=== PATIENT | male | born 1950 | race Caucasian/White ===

== ENCOUNTER 2018-07-28 17:54 | Inpatient (IN) ==
--- NOTE | 2018-07-28 18:20 | Emergency Department Note ---
Disposition Clinical Impression: CHF (congestive heart failure), Afib Disposition: Admitted As Inpatient Condition: Fair Referrals: Pete Govea MD [Primary Care Provider] - Forms: ED Satisfaction Letter General Adult HPI - General Chief complaint: ED Shortness of Breath/Dyspnea Stated complaint: HUONG, Possible CHF Time Seen by Provider: 07/28/18 18:14 - History of Present Illness Pain Scale: 8 - Related Data Allergies Allergy/AdvReac Type Severity Reaction Status Date / Time No Known Allergies Allergy Verified 07/28/18 18:26 Course Vital Signs Temperature 97.7 F 07/28/18 18:03 Pulse Rate 94 07/28/18 18:03 Respiratory Rate 20 07/28/18 18:03 Blood Pressure 131/82 07/28/18 18:03 O2 Sat by Pulse Oximetry 93 07/28/18 18:03 Temperature 97.7 F 07/28/18 18:26 Pulse Rate 94 07/28/18 18:26 Respiratory Rate 20 07/28/18 18:26 Blood Pressure 131/82 07/28/18 18:26 O2 Sat by Pulse Oximetry 96 07/28/18 18:26 Oxygen Delivery Oxygen Delivery Room Air Medical Decision Making - Lab Data Result diagrams: 07/28/18 18:22 07/28/18 18:22 Lab Results 07/28/18 07/28/18 07/28/18 Range/Units 18:22 18:22 18:22 WBC 7.4 (4.3-11.1) K/mcL RBC 5.88 H (4.19-5.50) M/mcL Hgb 18.4 H D (12.9-16.9) g/dL Hct 55.4 H (37.5-50.1) % MCV 94.2 (83.0-100.0) fL MCH 31.3 (28.0-33.3) pg MCHC 33.2 (31.6-35.5) g/dL RDW 12.4 (11.5-14.5) % Plt Count 199 (140-400) K/mcL MPV 10.0 (9.4-12.4) fL Immature Gran % 0.3 (0-4) % Seg Neutrophils % 54.4 % Lymphocytes % 33.2 % Monocytes % 9.8 % Eosinophils % 1.6 % Basophils % 0.7 % Neutrophils # 4.0 (1.6-8.9) K/mcL Lymphocytes # 2.5 (0.6-4.6) K/mcL Monocytes # 0.7 (0.0-1.3) K/mcL Eosinophils # 0.1 (0.0-0.6) K/mcL Basophils # 0.1 (0.0-0.2) K/mcL PT (9.4-12.1) Seconds INR Sodium 137 (136-145) mEq/L Potassium 4.2 (3.5-5.1) mEq/L Chloride 102 (98-107) mEq/L Carbon Dioxide 26 (23-29) mEq/L BUN 18 (8-23) mg/dL Creatinine 0.98 (0.70-1.30) mg/dL Est GFR ( Amer) > 60 (> 60) Est GFR (Non-Af Amer) > 60 (> 60) BUN/Creatinine Ratio 18 (6-26) Glucose 98 (70-105) mg/dL Calculated Osmolality 286 (280-300) Calcium 9.2 (8.6-10.3) mg/dL Total Bilirubin 0.7 (0.3-1.0) mg/dL Direct Bilirubin 0.1 (0.0-0.2) mg/dL Indirect Bilirubin 0.6 (0.0-1.2) mg/dL AST 23 (13-39) Units/L ALT 32 (7-52) Units/L Alkaline Phosphatase 68 (34-104) Units/L Troponin I < 0.03 (< 0.04) ng/mL B-Natriuretic Peptide 539 H (Less than 100) pg/mL Serum Total Protein 6.5 (6.4-8.9) g/dL Albumin 3.7 (3.5-5.7) g/dL Globulin 2.8 (2.4-3.5) g/dL Albumin/Globulin Ratio 1.3 (1.1-2.2) Specimen Rejected 07/28/18 07/28/18 Range/Units 18:57 19:02 WBC (4.3-11.1) K/mcL RBC (4.19-5.50) M/mcL Hgb (12.9-16.9) g/dL Hct (37.5-50.1) % MCV (83.0-100.0) fL MCH (28.0-33.3) pg MCHC (31.6-35.5) g/dL RDW (11.5-14.5) % Plt Count (140-400) K/mcL MPV (9.4-12.4) fL Immature Gran % (0-4) % Seg Neutrophils % % Lymphocytes % % Monocytes % % Eosinophils % % Basophils % % Neutrophils # (1.6-8.9) K/mcL Lymphocytes # (0.6-4.6) K/mcL Monocytes # (0.0-1.3) K/mcL Eosinophils # (0.0-0.6) K/mcL Basophils # (0.0-0.2) K/mcL PT 12.4 H (9.4-12.1) Seconds INR 1.1 Sodium (136-145) mEq/L Potassium (3.5-5.1) mEq/L Chloride (98-107) mEq/L Carbon Dioxide (23-29) mEq/L BUN (8-23) mg/dL Creatinine (0.70-1.30) mg/dL Est GFR ( Amer) (> 60) Est GFR (Non-Af Amer) (> 60) BUN/Creatinine Ratio (6-26) Glucose (70-105) mg/dL Calculated Osmolality (280-300) Calcium (8.6-10.3) mg/dL Total Bilirubin (0.3-1.0) mg/dL Direct Bilirubin (0.0-0.2) mg/dL Indirect Bilirubin (0.0-1.2) mg/dL AST (13-39) Units/L ALT (7-52) Units/L Alkaline Phosphatase (34-104) Units/L Troponin I (< 0.04) ng/mL B-Natriuretic Peptide (Less than 100) pg/mL Serum Total Protein (6.4-8.9) g/dL Albumin (3.5-5.7) g/dL Globulin (2.4-3.5) g/dL Albumin/Globulin Ratio (1.1-2.2) Specimen Rejected Miscellaneous Attestation Statement - Attestation Attestation: I examined this patient and my medical decision-making was reviewed with the Resident Physician. I agree with the documented findings, disposition and treatment plan as described except to the extent set forth below. [id number] time provided Patient arrives complaining of intermittent chest discomfort and dyspnea, especially when he lies supine at night. He is pleasant on exam and appears in no acute distress. Plan of care discussed with the resident physician Dr. Galindo
--- NOTE | 2018-07-28 18:25 | Emergency Department Note ---
Disposition Clinical Impression: CHF (congestive heart failure) Qualifiers: Heart failure type: unspecified Heart failure chronicity: unspecified Qualified Code(s): I50.9 - Heart failure, unspecified Afib Qualifiers: Atrial fibrillation type: unspecified Qualified Code(s): I48.91 - Unspecified atrial fibrillation Disposition: Admitted As Inpatient Condition: Fair Referrals: Pete Govea MD [Primary Care Provider] - Forms: ED Satisfaction Letter Time of Disposition: 19:34 General Adult HPI - General Chief complaint: ED Shortness of Breath/Dyspnea Stated complaint: HUONG, Possible CHF Time Seen by Provider: 07/28/18 18:14 Source: patient Mode of arrival: ambulatory Limitations: no limitations Nursing Notes Reviewed: Yes Vital Signs Reviewed: Yes - History of Present Illness HPI Narrative: 68-year-old male presents for evaluation of possible congestive heart failure and shortness of breath. Patient states she has been having S penetrance of breath for proximally 5 weeks. Notes to be worse when he is lying down. Patient cannot lay down flat. Typically sleeps in a chair. Denies any fevers but does note shortness of breath. No cough. No nausea vomiting or diaphor esis. Patient states he was seen in [place] and was told to come to the ER for a possible CHF. No abdominal pain. Patient denies a history of CAD or CHF. Denies history of irregular heart rate. Pain Scale: 8 - Related Data Allergies Allergy/AdvReac Type Severity Reaction Status Date / Time No Known Allergies Allergy Verified 07/28/18 18:26 All systems ED: reviewed and negative except as stated. Constitutional: Denies: fever Cardiovascular: Reports: chest pain Respiratory: Reports: cough, dyspnea Past Medical History - Past Medical History Source: patient - Social History Smoking Status: Former smoker Physical Exam - General Limitations: no limitations General appearance: alert, in no apparent distress - Head Head exam: atraumatic, normocephalic, normal inspection - Eye Eye exam: Present: normal appearance - ENT ENT exam: normal exam, normal oropharynx, mucous membranes moist - Neck Neck exam: Present: normal inspection - Chest Chest inspection: Present: normal inspection, symmetric chest wall rise - Respiratory Respiratory exam: Present: other (Diffuse diminished with faint rales). Absent: respiratory distress - Cardiovascular Cardiovascular exam: Present: normal rhythm, tachycardia. Absent: systolic murmur - Abdominal Exam Abdominal exam: Present: soft, Non-Tender - Extremities Exam Extremities exam: Present: normal inspection. Absent: pedal edema - Back Exam Back exam: Present: normal inspection - Neurological Exam Neurological exam: Present: alert, oriented X3, CN II-XII intact - Skin Skin exam: Present: warm, dry, intact, normal color Course Course Narrative: Patient presents with concerns of congestive heart failure. Patient was sent in from an outside facility. Patient did have records reviewed dated showed an echo which had an EF of 35-40%. Patient is in A. fib with no known diagnosis of A. fib. Patient will get cardiac evaluation and likely admission. - Reevaluation(s) Reevaluation #1: Patient seen and examined. Patient's resting comfortably. Updated on plan of care. Patient will be admitted for new onset A. fib and CHF. Patient does not have any pleuritic component to his chest pain. No concerns for PE. Time: 19:40 Vital Signs Temperature 97.7 F 07/28/18 18:03 Pulse Rate 94 07/28/18 18:03 Respiratory Rate 20 07/28/18 18:03 Blood Pressure 131/82 07/28/18 18:03 O2 Sat by Pulse Oximetry 93 07/28/18 18:03 Temperature 97.7 F 07/28/18 18:26 Pulse Rate 94 07/28/18 18:26 Respiratory Rate 20 07/28/18 18:26 Blood Pressure 131/82 07/28/18 18:26 O2 Sat by Pulse Oximetry 96 07/28/18 18:26 Oxygen Delivery Oxygen Delivery Room Air Medical Decision Making - [facility] Narrative Medical decision making narrative: Patient presents for concerns of dyspnea and heart failure. Did have echo earlier today which shows evidence of heart failure. Also concerns of new onset A. fib. Patient does not have risk factors or symptoms of PE. Patient does have symptoms of heart failure. Patient's workup is consistent with heart failure. Patient was given an aspirin as well as Lasix. Patient does not require any noninvasive positive pressure ventilation. No oxygen support. Patient would likely need admission for further evaluation and risk stratifica tion and optimal medical management. Patient is agreeable with this plan of care. - Medical Records Medical records reviewed: Yes I reviewed the patient's medical records. Impressions: Atrial fibrillation. LVEF grossly 35-40%. Moderate global left ventricular systolic dysfunction. Normal right ventricular structure and function. Mild mitral regurgitation. Mild pulmonic regurgitation. No pulmonary hypertension. - Lab Data Lab results reviewed: Yes I reviewed the patient's lab results. Result diagrams: 07/28/18 18:22 07/28/18 18:22 Lab Results 07/28/18 07/28/18 07/28/18 Range/Units 18:22 18:22 18:22 WBC 7.4 (4.3-11.1) K/mcL RBC 5.88 H (4.19-5.50) M/mcL Hgb 18.4 H D (12.9-16.9) g/dL Hct 55.4 H (37.5-50.1) % MCV 94.2 (83.0-100.0) fL MCH 31.3 (28.0-33.3) pg MCHC 33.2 (31.6-35.5) g/dL RDW 12.4 (11.5-14.5) % Plt Count 199 (140-400) K/mcL MPV 10.0 (9.4-12.4) fL Immature Gran % 0.3 (0-4) % Seg Neutrophils % 54.4 % Lymphocytes % 33.2 % Monocytes % 9.8 % Eosinophils % 1.6 % Basophils % 0.7 % Neutrophils # 4.0 (1.6-8.9) K/mcL Lymphocytes # 2.5 (0.6-4.6) K/mcL Monocytes # 0.7 (0.0-1.3) K/mcL Eosinophils # 0.1 (0.0-0.6) K/mcL Basophils # 0.1 (0.0-0.2) K/mcL PT (9.4-12.1) Seconds INR Sodium 137 (136-145) mEq/L Potassium 4.2 (3.5-5.1) mEq/L Chloride 102 (98-107) mEq/L Carbon Dioxide 26 (23-29) mEq/L BUN 18 (8-23) mg/dL Creatinine 0.98 (0.70-1.30) mg/dL Est GFR ( Amer) > 60 (> 60) Est GFR (Non-Af Amer) > 60 (> 60) BUN/Creatinine Ratio 18 (6-26) Glucose 98 (70-105) mg/dL Calculated Osmolality 286 (280-300) Calcium 9.2 (8.6-10.3) mg/dL Total Bilirubin 0.7 (0.3-1.0) mg/dL Direct Bilirubin 0.1 (0.0-0.2) mg/dL Indirect Bilirubin 0.6 (0.0-1.2) mg/dL AST 23 (13-39) Units/L ALT 32 (7-52) Units/L Alkaline Phosphatase 68 (34-104) Units/L Troponin I < 0.03 (< 0.04) ng/mL B-Natriuretic Peptide 539 H (Less than 100) pg/mL Serum Total Protein 6.5 (6.4-8.9) g/dL Albumin 3.7 (3.5-5.7) g/dL Globulin 2.8 (2.4-3.5) g/dL Albumin/Globulin Ratio 1.3 (1.1-2.2) Specimen Rejected 07/28/18 07/28/18 Range/Units 18:57 19:02 WBC (4.3-11.1) K/mcL RBC (4.19-5.50) M/mcL Hgb (12.9-16.9) g/dL Hct (37.5-50.1) % MCV (83.0-100.0) fL MCH (28.0-33.3) pg MCHC (31.6-35.5) g/dL RDW (11.5-14.5) % Plt Count (140-400) K/mcL MPV (9.4-12.4) fL Immature Gran % (0-4) % Seg Neutrophils % % Lymphocytes % % Monocytes % % Eosinophils % % Basophils % % Neutrophils # (1.6-8.9) K/mcL Lymphocytes # (0.6-4.6) K/mcL Monocytes # (0.0-1.3) K/mcL Eosinophils # (0.0-0.6) K/mcL Basophils # (0.0-0.2) K/mcL PT 12.4 H (9.4-12.1) Seconds INR 1.1 Sodium (136-145) mEq/L Potassium (3.5-5.1) mEq/L Chloride (98-107) mEq/L Carbon Dioxide (23-29) mEq/L BUN (8-23) mg/dL Creatinine (0.70-1.30) mg/dL Est GFR ( Amer) (> 60) Est GFR (Non-Af Amer) (> 60) BUN/Creatinine Ratio (6-26) Glucose (70-105) mg/dL Calculated Osmolality (280-300) Calcium (8.6-10.3) mg/dL Total Bilirubin (0.3-1.0) mg/dL Direct Bilirubin (0.0-0.2) mg/dL Indirect Bilirubin (0.0-1.2) mg/dL AST (13-39) Units/L ALT (7-52) Units/L Alkaline Phosphatase (34-104) Units/L Troponin I (< 0.04) ng/mL B-Natriuretic Peptide (Less than 100) pg/mL Serum Total Protein (6.4-8.9) g/dL Albumin (3.5-5.7) g/dL Globulin (2.4-3.5) g/dL Albumin/Globulin Ratio (1.1-2.2) Specimen Rejected Miscellaneous - Radiology Data Radiology results reviewed: Yes I reviewed the patient's radiology results. Chest X-Ray 07/28/18 18:18 IMPRESSION: Improved perihilar opacities suggest resolving pulmonary edema. Mild cardiomegaly. D/ / Isaías Rader MD / Isaías Rader MD Interpreting Provider: Isaías Rader MD - EKG Data EKG #1 EKG attestation: Yes I reviewed and interpreted this EKG. Rate: tachycardia Rhythm: A.Fib [place]/QRS: normal, IVCD When compared to previous EKG there are: changes noted Interpretation: nonspecific ST-T wave changes S.B.AKeikoRKeiko - S.Ramon.AKeira Situation: Demographics Background: Presenting Complaint Assessment: Vital Signs, Course and respsone to treatment, Patient/Family Expectation Recommendation: Barrier(s) to disposition, Recommendation based on pending studies, treatments, or consults S.B.A.RKeiko Report Given to: Dr. Yg Bravo Repor Time: 19:34
[2018-07-28 18:40] LABS: Basophils # 0.1 K/mcL (0.0-0.2); Basophils % 0.7 %; Eosinophils # 0.1 K/mcL (0.0-0.6); Eosinophils % 1.6 %; Immature Granulocytes % 0.3 % (0-4); Lymphocytes # 2.5 K/mcL (0.6-4.6); Lymphocytes % 33.2 %; Mean Corpuscular HGB Conc 33.2 g/dL (31.6-35.5); Mean Corpuscular Hemoglobin 31.3 pg (28.0-33.3); Mean Corpuscular Volume 94.2 fL (83.0-100.0); Monocytes # 0.7 K/mcL (0.0-1.3); Monocytes % 9.8 %; Platelet Count 199 K/mcL (140-400); Red Blood Count 5.88 M/mcL (4.19-5.50); Red Cell Distribution Width 12.4 % (11.5-14.5); Segmented Neutrophils % 54.4 %
[2018-07-28 18:50] LABS: Hematocrit 55.4 % (37.5-50.1); Hemoglobin 18.4 g/dL (12.9-16.9)
[2018-07-28 19:00] LABS: Troponin I < 0.03 ng/mL (< 0.04)
[2018-07-28 19:01] LABS: Alanine Aminotransferase 32 Units/L (7-52); Albumin 3.7 g/dL (3.5-5.7); Albumin/Globulin Ratio 1.3 (1.1-2.2); Alkaline Phosphatase 68 Units/L (34-104); Aspartate Amino Transferase 23 Units/L (13-39); BUN/Creatinine Ratio 18 (6-26); Bilirubin,Direct 0.1 mg/dL (0.0-0.2); Bilirubin,Indirect 0.6 mg/dL (0.0-1.2); Bilirubin,Total 0.7 mg/dL (0.3-1.0); Blood Urea Nitrogen 18 mg/dL (8-23); Calcium 9.2 mg/dL (8.6-10.3); Carbon Dioxide 26 mEq/L (23-29); Chloride 102 mEq/L (98-107); Globulin 2.8 g/dL (2.4-3.5); Glucose 98 mg/dL (70-105); Osmolality,Calculated 286 (280-300); Potassium 4.2 mEq/L (3.5-5.1); Sodium 137 mEq/L (136-145); Total Protein 6.5 g/dL (6.4-8.9); eGFR For Non-African Americans > 60 (> 60)
[2018-07-28 19:18] LABS: INR 1.1; Prothrombin Time 12.4 Seconds (9.4-12.1)
[2018-07-28] MEDS ORDERED: Furosemide 40 MG/4 ML VIAL IVP ONE (19:18)
[2018-07-28] MEDS ORDERED: Furosemide 20 MG/2 ML VIAL IVP ONE (19:39)
[2018-07-28] MEDS: Aspirin 325 MG TABLET PO ONE ×2 (20:34→20:42)
[2018-07-29] MEDS ORDERED: Naloxone 0.4 MG/ML INJ IVP PRN (01:22)
[2018-07-29] MEDS ORDERED: *HR* Heparin 5,000 UNIT/ML VIAL IVP PRN ×2 (01:24)
[2018-07-29] MEDS ORDERED: *HR* Heparin 5,000 UNIT/ML VIAL IVP ONE (01:24)
[2018-07-29] MEDS: Heparin 25,000 UNIT/500 ML D5W 25,000 UNIT/500 ML BAG IVC SCH ×2 (01:53→20:13)
[2018-07-29 02:34] LABS: Hematocrit 52.8 % (37.5-50.1); Hemoglobin 17.9 g/dL (12.9-16.9); Mean Corpuscular HGB Conc 33.9 g/dL (31.6-35.5); Mean Corpuscular Hemoglobin 31.5 pg (28.0-33.3); Mean Corpuscular Volume 92.8 fL (83.0-100.0); Mean Platelet Volume 9.7 fL (9.4-12.4); Platelet Count 193 K/mcL (140-400); Red Blood Count 5.69 M/mcL (4.19-5.50); Red Cell Distribution Width 12.5 % (11.5-14.5)
[2018-07-29 02:51] LABS: BUN/Creatinine Ratio 15 (6-26); Blood Urea Nitrogen 15 mg/dL (8-23); Calcium 9.5 mg/dL (8.6-10.3); Carbon Dioxide 25 mEq/L (23-29); Chloride 103 mEq/L (98-107); Glucose 108 mg/dL (70-105); Osmolality,Calculated 285 (280-300); Potassium 3.8 mEq/L (3.5-5.1); Sodium 137 mEq/L (136-145); eGFR For Non-African Americans > 60 (> 60)
[2018-07-29 03:09] LABS: INR 1.1
[2018-07-29 03:15] LABS: Heparin anti-factor XA UFH 1.31 IU/mL (0.30-0.70)
[2018-07-29] MEDS: Furosemide 20 MG/2 ML VIAL IVP SCH (08:00)
--- NOTE | 2018-07-29 08:36 | Internal Med History&Physical ---
Date of Encounter: 07/29/18 Time of Encounter: 00:33 Internal Medicine - H&P: HPI Chief complaint: Shortness of breath Admitted From: Emergency Dept Plans for Post Hospital Care: Home History of present illness: Mr. Pardo is a 68 year old male Patient presented to the ER with 5 week history of shortness of breath and chest pain. He states that he has noticed that he has been getting more short of breath lately, particularly with laying down. He went to his doctor's office a few days ago, and he was diagnosed with bronchitis and given azithromycin, ventolin, prednisone and levaquin to take. He went to another provider 1 day ago and was given furosemide as well as a chest x-ray which showed probable mild congestive heart failure. None of these interventions seemed to help, and after getting an echo done in [place], he was told that he should go to the ER for further evaluation. He denies history of atrial fibrillation, and has never been told that he has CHF. In the ER his CBC and BMP were within normal limits. BNP was elevated at 539, chest x-ray showed improved perihilar opacities that suggested resolving pulmonary edema. Her echo done at [place] showed EF of 35-40%. He was given a dose of lasix and sent to the medical floor for further management. Upon my assessment patient states that he feels much better after being put on nasal cannula supplemental oxygen. He denies ever being told that he has atrial fibrillation and congestive heart failure. He has never seen a director of application development, and has no history of blood clots or diabetes. He has had some dizziness, but otherwise denies nausea, vomiting, diarrhea, constipation, abdominal pain and chest pain currently. His chest pain that he has felt off and on over the last 5 weeks is lower left and right chest pain with out radiation. Past Med Surg Social Fam HX - Past Medical History Medical history: other Additional medical history: tremors Psychiatric history: no psych history - Past Surgical History Surgical History: cholecystectomy, tonsilectomy - Social History Smoking Status: Former smoker Smokeless Tobacco Status: No (smoke 11 yrs ago) Alcohol use: none Drug use: none Internal Medicine - H&P: Meds Albuterol Sulfate [Ventolin Hfa] 2 puff PO Q4H PRN 07/28/18 [History] Primidone [Mysoline] 50 mg PO DAILY 07/28/18 [History] Tramadol HCl [Ultram] 50 mg PO TID PRN 07/28/18 [History] levoFLOXacin [Levofloxacin] 500 mg PO DAILY 07/28/18 [History] predniSONE [PredniSONE] 40 mg PO DAILY 07/28/18 [History] Allergy/AdvReac Type Severity Reaction Status Date / Time acetaminophen [From Tylenol] AdvReac Severe See Verified 07/28/18 22:55 Comments aspirin AdvReac See Verified 07/28/18 22:55 Comments Penicillins AdvReac Dizziness Verified 07/28/18 22:55 Sulfa (Sulfonamide AdvReac Dizziness Verified 07/28/18 20:39 Antibiotics) All Systems PM: A 10-system review of systems was performed and is negative for pertinent findings except as documented above in the HPI. - Constitutional Vitals: Temp Pulse Resp BP Pulse Ox 97.5 F L 95 18 138/62 93 07/29/18 07:01 07/29/18 07:01 07/29/18 07:01 07/29/18 07:01 07/29/18 07:01 General appearance: Present: cooperative, A&O X 3, pleasant, no acute distress, answers questions appropriately Exam: As above - Head Head exam: Present: normal inspection - Eye Eye exam: Present: EOMI, normal appearance - Respiratory Respiratory exam: Present: rales, respiratory distress, rhonchi. Absent: CTAB, wheezes - Cardiovascular Cardiovascular exam: Present: irregular rhythm. Absent: diastolic murmur, systolic murmur - GI/Abdominal GI/Abdominal exam: Present: normal bowel sounds, soft. Absent: tenderness - Extremities Exam Extremities exam: Present: warm, radial pulses palpable and symmetrical. Absent: calf tenderness, pedal edema, tenderness - Neurological Exam Neurological exam: Present: no focal deficits, strengths equal and symetr throughout. Absent: motor sensory deficit, facial droop, speech deficit - Skin Skin exam: Present: dry, normal color, warm Internal Med - H&P Results - Labs CBC & Chem 7: 07/29/18 02:06 07/29/18 02:06 Labs: Short CBC 07/28/18 07/29/18 Range/Units 18:22 02:06 WBC 7.4 8.1 (4.3-11.1) K/mcL Hgb 18.4 H D 17.9 H (12.9-16.9) g/dL Hct 55.4 H 52.8 H (37.5-50.1) % Plt Count 199 193 (140-400) K/mcL Neutrophils # 4.0 (1.6-8.9) K/mcL BMP 07/28/18 07/29/18 18:22 02:06 Sodium 137 137 Potassium 4.2 3.8 Chloride 102 103 Carbon Dioxide 26 25 BUN 18 15 Creatinine 0.98 0.99 Glucose 98 108 H Calcium 9.2 9.5 Cardiac Enzymes 07/28/18 07/29/18 Range/Units 18:22 02:06 Troponin I < 0.03 0.03 (< 0.04) ng/mL Liver Function 07/28/18 Range/Units 18:22 Total Bilirubin 0.7 (0.3-1.0) mg/dL Direct Bilirubin 0.1 (0.0-0.2) mg/dL AST 23 (13-39) Units/L ALT 32 (7-52) Units/L Alkaline Phosphatase 68 (34-104) Units/L Albumin 3.7 (3.5-5.7) g/dL - Impressions ITS Impressions Chest X-Ray 07/28/18 18:18 IMPRESSION: Improved perihilar opacities suggest resolving pulmonary edema. Mild cardiomegaly. D/ / Isaías Rader MD / Isaías Rader MD Interpreting Provider: Isaías Rader MD - Assessment and plan (1) Afib Current Visit: Yes Status: Acute Assessment and plan: Irregular rate on EKG and on exam, rate has maintained less than 100. Patient started on heparin drip. Cardiology consultation for new onset atrial fibrillation. Continue to monitor. Trend troponins. Qualifiers: Atrial fibrillation type: unspecified Qualified Code(s): I48.91 - Unspecified atrial fibrillation (2) CHF (congestive heart failure) Current Visit: Yes Status: Acute Assessment and plan: New onset CHF, lasix given in ER, as well as day prior form his PCP. patient states that he is having increased urine output. Daily weights. Continue lasix Continue to monitor. Qualifiers: Heart failure type: unspecified Heart failure chronicity: unspecified Qualified Code(s): I50.9 - Heart failure, unspecified (3) Shortness of breath Current Visit: Yes Status: Acute Assessment and plan: Secondary to CHF and afib. Improved with oxygen supplementation. Continue to monitor. Continue oxygen supplementation. (4) Essential tremor Current Visit: Yes Status: Acute Assessment and plan: Patient takes primidone, 50mg daily. Continue home med. (5) DVT prophylaxis Current Visit: Yes Status: Acute Assessment and plan: heparin drip - Time Spent With Patient Total time spent is greater than 50% in coordination of care (as documented) at patient's floor/unit and/or counseling patient: Greater than 35 minutes
[2018-07-29 08:46] LABS: Troponin I < 0.03 ng/mL (< 0.04)
[2018-07-29] MEDS: Primidone 50 MG TABLET PO SCH (10:18)
--- NOTE | 2018-07-29 11:36 | Electrophysiology Consult Note ---
Date of Encounter: 07/29/18 Time of Encounter: 11:32 Assessment and Plan (1) CHF (congestive heart failure) Current Visit: Yes Status: Acute New diagnosis of systolis dysfunction. Would diurese, start cardiomyopathy meds and will need left heart cath. Qualifiers: Heart failure type: unspecified Heart failure chronicity: unspecified Qualified Code(s): I50.9 - Heart failure, unspecified (2) Afib Current Visit: Yes Status: Acute Uncertain duration but suspect this is not acute onset but new diagnosis. Would rate control and anticoagulate initially. Qualifiers: Atrial fibrillation type: unspecified Qualified Code(s): I48.91 - Unspecif ied atrial fibrillation Discussion w patient/family: The assessment and plan as outlined above was discussed with the patient and/or family members who expressed understanding and agreement. All questions were answered. Thank you for involving us in the care of your patient. Please call with any questions. History of Present Illness Consult date: 07/29/18 Requesting physician: Dariusz Ronquillo Consult reason: CHF, new CM, AF Chief complaint: SOB, chest pain History of present illness: Mr. Pardo is a 68 year old male with a several week history of SOB and chest pain. Was treated initially for bronchitis but when symptoms did not improve he under went echo which showed a new cardiomyopathy. He was also noted to be in AF of unknown duration. Chest pain described as substernal and worse with exertion, no radiation. Past Med Surg Social Fam HX - Past Medical History Medical history: other Additional medical history: tremors Psychiatric history: no psych history - Past Surgical History Surgical History: cholecystectomy, tonsilectomy - Social History Smoking Status: Former smoker Smokeless Tobacco Status: No (smoke 11 yrs ago) Alcohol use: none Drug use: none Medications and Allergies Albuterol Sulfate [Ventolin Hfa] 2 puff PO Q4H PRN 07/28/18 [History] Primidone [Mysoline] 50 mg PO DAILY 07/28/18 [History] Tramadol HCl [Ultram] 50 mg PO TID PRN 07/28/18 [History] levoFLOXacin [Levofloxacin] 500 mg PO DAILY 07/28/18 [History] predniSONE [PredniSONE] 40 mg PO DAILY 07/28/18 [History] Allergy/AdvReac Type Severity Reaction Status Date / Time acetaminophen [From Tylenol] AdvReac Severe See Verified 07/28/18 22:55 Comments aspirin AdvReac See Verified 07/28/18 22:55 Comments Penicillins AdvReac Dizziness Verified 07/28/18 22:55 Sulfa (Sulfonamide AdvReac Dizziness Verified 07/28/18 20:39 Antibiotics) All Systems Review: The remainder of the systems were reviewed and are negative Physical Examination General: Conversant, No Apparent Distress HEENT: Atraumatic, Normocephaly, Mucus Membranes Moist Neck: No JVD, Normal carotid pulses Cardiac: Other (Irreg., distant heart sounds) Lungs: Other (decreased at bases) Neuro: Alert and responsive, No focal deficits noted Abdomen: Soft, Non-Tender Skin: No rashes noted on visualized skin Musculoskeletal: No Chest Wall Tenderness Extremities: Other (1-2 edema at ankles) Results 07/29/18 02:06 07/29/18 02:06 Lab Results 07/28/18 07/28/18 07/28/18 18:22 18:22 18:22 WBC 7.4 Hgb 18.4 H D Hct 55.4 H Plt Count 199 INR Sodium 137 Potassium 4.2 Chloride 102 Carbon Dioxide 26 BUN 18 Creatinine 0.98 Glucose 98 Calcium 9.2 Magnesium Total Bilirubin 0.7 AST 23 ALT 32 Alkaline Phosphatase 68 Troponin I < 0.03 B-Natriuretic Peptide 539 H 07/28/18 07/29/18 07/29/18 19:02 02:06 02:06 WBC Hgb Hct Plt Count INR 1.1 1.1 Sodium Potassium Chloride Carbon Dioxide BUN Creatinine Glucose Calcium Magnesium Total Bilirubin AST ALT Alkaline Phosphatase Troponin I 0.03 B-Natriuretic Peptide 07/29/18 07/29/18 07/29/18 02:06 02:06 07:52 WBC 8.1 Hgb 17.9 H Hct 52.8 H Plt Count 193 INR Sodium 137 Potassium 3.8 Chloride 103 Carbon Dioxide 25 BUN 15 Creatinine 0.99 Glucose 108 H Calcium 9.5 Magnesium 2.0 Total Bilirubin AST ALT Alkaline Phosphatase Troponin I < 0.03 B-Natriuretic Peptide - EKG Interpretation EKG results cardiology: other (AF with mild RVR) Consult Discharge Plan - Plan Referrals: Pete Govea MD [Primary Care Provider] -
--- NOTE | 2018-07-29 14:41 | Event Note ---
Date of Encounter: 07/29/18 Time of Encounter: 09:30 Mr Pardo has a pmhx of tremors, former smoker and family hx of cad and chf in his mother. He presented with new onset CHF and Afib of duration unknown but new dx He has had sob x5 weeks, was treated outpt for bronchitis with sob, cough, chest pain/pressure at that time. Post treatment cough improved but sob and chest pain/pressure did not improve. Worsening sob and developed orthopnea, pnd, le edema and cont chest discomfort in recent week. No immobilization, calf pain or unequal calf sizes Awake, alert, family at bedside. On heparingtt for AC. On o2 NC and no sob at this time. chest pain/pressure improved with o2 as well. Having at home and here intermittent palpitations, presyncope. None currently. General: awake, alert, appears stated age, obese HEENT:EOM, pupils equal, round, moist mucus membranes, clear oropharynx , no conjunctival pallor Neck: supple, trachea midline Cardiovascular:regular rate and irreg/irreg rhythm, normal S1 & S2, no rubs, murmurs or gallops. No JVD appreciable but + HJR radial pulses 2+, trace bl le lower extremity edema Lungs:Normal breath sounds, no wheezes, diminished bl bases, Normal respiratory effort on o2 nc Abdomen:Soft, non-tender, non-distended, + bowel sounds Neurological: AAOx3 Afib, rate controlled, unknown duration- on hep gtt, cards following, cont AC, toprol xl daily started Acute Systolic CHF echo 07/28: LVEF grossly 35-40%. Moderate global left ventricular systolic dysfunction. Normal right ventricular structure and function. Mild mitral regurgitation. Mild pulmonic regurgitation. No pulmonary hypertension. -IV diuresis, strict i/os, weights, monitor lytes, cards following,startstatin/bb/ acei as Bp permits / is allergic to aspirin Need to rule out ischemic cause of these newly diagnosed cardiac diseases- check tsh, a1c, lipid panel, as per cards will need [facility] -trops negative, ekg afib non specific stt changes
[2018-07-30 05:30] LABS: BUN/Creatinine Ratio 16 (6-26); Blood Urea Nitrogen 15 mg/dL (8-23); Calcium 9.2 mg/dL (8.6-10.3); Carbon Dioxide 28 mEq/L (23-29); Chloride 104 mEq/L (98-107); Chol/HDL Ratio 4.3 (0-4.9); Cholesterol 197 mg/dL (< 200); Glucose 116 mg/dL (70-105); HDL Cholesterol 46 mg/dL (40-59); LDL Cholesterol,Calculated 111 mg/dL (0-99); Magnesium 1.9 mg/dL (1.6-2.6); Osmolality,Calculated 290 (280-300); Potassium 3.7 mEq/L (3.5-5.1); Sodium 139 mEq/L (136-145); Triglycerides 199 mg/dL (< 150); eGFR For Non-African Americans > 60 (> 60)
[2018-07-30] MEDS: Metoprolol XL (24 HR) Succ 25 MG TAB.ER.24H PO SCH (08:04)
[2018-07-30] MEDS: Furosemide 20 MG/2 ML VIAL IVP SCH (08:04)
[2018-07-30] MEDS: Primidone 50 MG TABLET PO SCH (08:04)
[2018-07-30] MEDS: Furosemide 40 MG/4 ML VIAL IVP SCH ×2 (09:54→16:10)
--- NOTE | 2018-07-30 11:02 | Internal Med Progress Note ---
<Karen Enamorado - Last Filed: 07/30/18 15:09> Hospitalist Progress Note - Encounter Date of Encounter: 07/30/18 Time of Encounter: 10:50 - Subjective Interval History: Patient seen and examined. No acute events overnight. Patient is sitting comfortably on bed with family at bedside. Patient states he feels fine. States hes a little lightheadedness after the Lasix. States he still feels chest heaviness but reports its improved since admission. States shortness of breath is improved. States swelling is gone. Denies any other complaints. Denies abdominal pain. Denies nausea/vomiting. - Exam Vitals: Temp Pulse Resp BP Pulse Ox 97.9 F 87 19 132/98 94 07/30/18 04:46 07/30/18 07:10 07/30/18 07:10 07/30/18 07:10 07/30/18 07:10 Exam: General: Morbidly obese. Alert and oriented x3. No acute distress. Head: atraumatic, normocephalic. Eye: pupils equal and round. Sclera anicteric. EOMI. Neck: supple. Trachea midline. Lungs: CTAB. Diminished breath sounds. No rhonchi, rales, or wheezing. Cardiovascular: Normal S1 & S2. No rubs or gallops. No JVD. Pulse regular. Abdomen: Normal bowel sounds. Nontender to palpation. No guarding, no rigidity, no rebound. Extremities: No joint swelling, edema, or clubbing. Nontender. Skin: warm, dry, and intact. - Assessment and Plan (1) Afib Current Visit: Yes Status: Acute Assessment and Plan: On admission, A-fib on EKG, rate <100. New diagnosis, unknown duration. Rule out ischemic cause. Serial troponins are negative. EKG is negative for acute ischemic changes. Echo showed LVEF 35-40%. No clot. Patient was started on heparin drip. Was started on Toprol. No ASA due to allergy. Continue to monitor. Cardiology consulted and following. Likely [facility] tomorrow. (2) CHF (congestive heart failure) Current Visit: Yes Status: Acute Assessment and Plan: Patient presented with worsening SOB, orthopnea, and leg swelling. Acute systolic CHF. New onset. Echo showed LVEF 35-40%, mod LV systolic dysfunction. No pHTN. Lasix was given in ER, as well as day before by PCP. Patient states that he is having increased urine output. Lasix increased today to 40 BID due to low net output. Assess net output tomorrow and adjust dose if needed. Lisinopril started today. Daily weights. Strict I&Os. Continue to monitor. Cardiology consulted and following. (3) Shortness of breath Current Visit: Yes Status: Acute Assessment and Plan: Secondary to CHF and Afib. Improved. Continue to monitor. Continue oxygen supplementation. (4) Essential tremor Current Visit: Yes Status: Chronic Assessment and Plan: Patient takes primidone, 50mg daily. Continue home med. DVT Prophylaxis: heparin drip - Time Spent with Patient Total time spent is greater than 50% in coordination of care (as documented) at patient's floor/unit and/or counseling patient: Internal Medicine: Result - Labs CBC & Chem 7: 07/29/18 02:06 07/30/18 04:52 Labs: BMP 07/30/18 04:52 Sodium 139 Potassium 3.7 Chloride 104 Carbon Dioxide 28 BUN 15 Creatinine 0.95 Glucose 116 H Calcium 9.2 - ABG Interpretation ABG results: PT/INR, D-dimer PT 12.0 Seconds (9.4-12.1) 07/29/18 02:06 Consult Discharge Plan - Plan Referrals: Pete Govea MD [Primary Care Provider] - <Karin Zelaya - Last Filed: 07/30/18 15:33> Hospitalist Progress Note - Exam Vitals: Temp Pulse Resp BP Pulse Ox 97.9 F 87 19 132/98 94 07/30/18 04:46 07/30/18 07:10 07/30/18 07:10 07/30/18 07:10 07/30/18 07:10 - Assessment and Plan (1) CHF (congestive heart failure) Current Visit: Yes Status: Acute (2) Afib Current Visit: Yes Status: Acute (3) Shortness of breath Current Visit: Yes Status: Acute (4) Essential tremor Current Visit: Yes Status: Chronic - Time Spent with Patient Total time spent is greater than 50% in coordination of care (as documented) at patient's floor/unit and/or counseling patient: Internal Medicine: Result - Labs CBC & Chem 7: 07/29/18 02:06 07/30/18 04:52 Labs: BMP 07/30/18 04:52 Sodium 139 Potassium 3.7 Chloride 104 Carbon Dioxide 28 BUN 15 Creatinine 0.95 Glucose 116 H Calcium 9.2 - ABG Interpretation ABG results: PT/INR, D-dimer PT 12.0 Seconds (9.4-12.1) 07/29/18 02:06 - Attending Attestation I examined this patient and my medical decision-making was reviewed with the Resident Physician Dr Enamorado. I agree with the documented findings, disposition and treatment plan as described except to the extent set forth below/addl det ails below Mr Pardo has a pmhx of tremors, former smoker and family hx of cad and chf in his mother. He presented with new onset CHF and Afib of duration unknown but new dx He has had sob x5 weeks, was treated outpt for bronchitis with sob, cough, chest pain/pressure at that time. Post treatment cough improved but sob and chest pain/pressure did not improve. Worsening sob and developed orthopnea, pnd, le edema and cont chest discomfort in recent week. He is being followed by card iology and will require ischemic work up. awake, family at bedside, had intermittent chest pain last evening,none thus far today. no palpitations, presycnope. no sob on o2 nc, + orthopnea. General: awake, alert, appears stated age, obese Cardiovascular:regular rate and irreg/irreg rhythm, normal S1 & S2, no rubs, murmurs or gallops. No JVD appreciable but + HJR radial pulses 2+, no lower extremity edema Lungs:Normal breath sounds, no wheezes, diminished bl bases, Normal respiratory effort on o2 nc Abdomen:Soft, non-tender, non-distended, + bowel sounds Neurological: AAOx3 Afib, rate controlled, unknown duration- on hep gtt, cards following, cont AC, toprol xl daily started Acute Systolic CHF echo 07/28: LVEF grossly 35-40%. Moderate global left ventricular systolic dysfunction. Normal right ventricular structure and function. Mild mitral regurgitation. Mild pulmonic regurgitation. No pulmonary hypertension. -IV diuresis increased 07/30 as net + this admit on 20 mg IV BID, strict i/os, weights, monitor lytes, cards following, statin/bb/acei/ is allergic to aspirin Need to rule out ischemic cause of these newly diagnosed cardiac diseases- a1c pending, lipid panel with hyperlipidemia, as per cards will need [facility] -trops negative, ekg afib non specific stt changes <Karen Enamorado - Last Filed: 07/30/18 15:09> (1) Afib Qualifiers: Atrial fibrillation type: unspecified Qualified Code(s): I48.91 - Unspecified atrial fibrillation (2) CHF (congestive heart failure) Qualifiers: Heart failure type: unspecified Heart failure chronicity: unspecified Qualified Code(s): I50.9 - Heart failure, unspecified <Karin Zelaya - Last Filed: 07/30/18 15:33> (1) CHF (congestive heart failure) Qualifiers: Heart failure type: unspecified Heart failure chronicity: unspecified Qualified Code(s): I50.9 - Heart failure, unspecified (2) Afib Qualifiers: Atrial fibrillation type: unspecified Qualified Code(s): I48.91 - Unspecified atrial fibrillation
[2018-07-30] MEDS: Heparin 25,000 UNIT/500 ML D5W 25,000 UNIT/500 ML BAG IVC SCH (11:36)
[2018-07-30] MEDS ORDERED: Magnesium Oxide 400 MG TABLET PO ONE (13:17)
[2018-07-31] MEDS: Heparin 25,000 UNIT/500 ML D5W 25,000 UNIT/500 ML BAG IVC SCH ×2 (04:58→21:18)
[2018-07-31 05:33] LABS: BUN/Creatinine Ratio 21 (6-26); Blood Urea Nitrogen 22 mg/dL (8-23); Calcium 9.5 mg/dL (8.6-10.3); Carbon Dioxide 28 mEq/L (23-29); Chloride 102 mEq/L (98-107); Glucose 105 mg/dL (70-105); Osmolality,Calculated 290 (280-300); Potassium 3.9 mEq/L (3.5-5.1); Sodium 138 mEq/L (136-145); eGFR For Non-African Americans > 60 (> 60)
--- NOTE | 2018-07-31 07:41 | Pulmonology Progress Note ---
Date of Encounter: 07/31/18 Time of Encounter: 07:40 Objective PUL Vital signs: Last Vital Signs Temp 97.7 F 07/31/18 05:13 Pulse 86 07/31/18 05:13 Resp 18 07/31/18 05:13 BP 120/90 07/31/18 05:13 Pulse Ox 94 07/31/18 01:00 Results - Laboratory Findings CBC and BMP: 07/29/18 02:06 07/31/18 04:34 PT/INR, D-dimer PT 12.0 Seconds (9.4-12.1) 07/29/18 02:06 Abnormal lab findings: Abnormal lab results RBC 5.69 M/mcL (4.19-5.50) H 07/29/18 02:06 Hgb 17.9 g/dL (12.9-16.9) H 07/29/18 02:06 Hct 52.8 % (37.5-50.1) H 07/29/18 02:06 B-Natriuretic Peptide 539 pg/mL (Less than 100) H 07/28/18 18:22 Triglycerides 199 mg/dL (< 150) H 07/30/18 04:52 LDL Cholesterol, Calc 111 mg/dL (0-99) H 07/30/18 04:52 VLDL Cholesterol, Calc 40 mg/dL (< 31) H 07/30/18 04:52 - Clinical Findings Intake & Output: Intake & Output 07/30/18 07/30/18 07/31/18 15:59 23:59 07:59 Intake Total 1276 / 1276 740 / 740 720 / 720 Output Total 1150 / 1150 300 / 300 425 / 425 Balance 126 / 126 440 / 440 295 / 295 Weight 139 kg Consult Discharge Plan - Plan Referrals: Pete oGvea MD [Primary Care Provider] -
--- NOTE | 2018-07-31 07:45 | Internal Med Progress Note ---
<Lynette Muir - Last Filed: 07/31/18 12:33> Hospitalist Progress Note - Encounter Date of Encounter: 07/31/18 Time of Encounter: 07:45 - Subjective Interval History: No acute events overnight. Pt scheduled for a [facility] today at 1400. Pt states he is feeling well, still feeling a little lightheaded occasionally, but not cons istently. States that when he feels light headed, sometimes his hands go numb - first one of them and then the other. Also complaining of a dry cough. States that he quit smoking 2 weeks ago after 63 years 1ppd. Saturating at 95% on RA, but would like to discuss home oxygen for when he feels short of breath. Will make sure he is on cardiac diet and will fluid restrict to 1.5L per day. - Exam Vitals: Temp Pulse Resp BP Pulse Ox 97.7 F 86 18 120/90 94 07/31/18 05:13 07/31/18 05:13 07/31/18 05:13 07/31/18 05:13 07/31/18 01:00 Exam: General: Morbidly obese. A&O x 3. No acute distress. Well developed, well nourished. Head: atraumatic, normocephalic. ENT: No conjunctival injection, no scleral icterus. PERRLA. EOMI. Oropharynx non- erythematous. mucous membranes moist. Pulm: Lungs CTAB A/P. No wheezes, rales, ronchi. Cardio: Heart rate irregular. Abd: Soft, non-distended. Normoactive bowel sounds. Non-tender to palpation. No guarding. Non rigid. Extremities: Radial pulses 2+ bong, Mild 1+ bong edema LE Skin: warm, dry, intact. No rashes. Psych: Appropriate mood and affect. Answers questions appropriately. Cooperative with exam. - Assessment and Plan (1) CHF (congestive heart failure) Current Visit: Yes Status: Acute Assessment and Plan: Patient presented with worsening SOB, orthopnea, and leg swelling. Acute systolic CHF. New onset. Echo showed LVEF 35-40%, mod LV systolic dysfunction. No pHTN. Lasix was given in ER, as well as day before by PCP. Patient states that he is having increased urine output. Lasix increased yesterday to 40 BID due to low net output. Assess net output tomorrow and adjust dose if needed. Lisinopril started yesterday. Daily weights. Strict I&Os. Continue to monitor. Cardiology consulted and following. (2) Afib Current Visit: Yes Status: Acute Assessment and Plan: On admission, A-fib on EKG, rate <100. New diagnosis, unknown duration. Rule out ischemic cause. Serial troponins are negative. EKG is negative for acute ischemic changes. Echo showed LVEF 35-40%. No clot. Patient was started on heparin drip. Was started on Toprol. No ASA due to allergy. Continue to monitor. Cardiology consulted and following. [facility] today (3) Shortness of breath Current Visit: Yes Status: Acute Assessment and Plan: Likely secondary to Afib and CHF Improved Continue to monitor assess for home oxygen need at discharge (4) Essential tremor Current Visit: Yes Status: Chronic Assessment and Plan: Pt has been taking primadone 50mg at home, continue home medication (5) DVT prophylaxis Current Visit: Yes Status: Acute Assessment and Plan: heparin drip DVT Prophylaxis: heparin drip - Time Spent with Patient Total time spent is greater than 50% in coordination of care (as documented) at patient's floor/unit and/or counseling patient: Internal Medicine: Result - Labs CBC & Chem 7: 07/29/18 02:06 07/31/18 04:34 Labs: BMP 07/31/18 04:34 Sodium 138 Potassium 3.9 Chloride 102 Carbon Dioxide 28 BUN 22 Creatinine 1.03 Glucose 105 Calcium 9.5 - ABG Interpretation ABG results: PT/INR, D-dimer PT 12.0 Seconds (9.4-12.1) 07/29/18 02:06 Consult Discharge Plan - Plan Referrals: Pete Govea MD [Primary Care Provider] - 08/07/18 3:30 pm <Karin Zelaya - Last Filed: 07/31/18 13:40> Hospitalist Progress Note - Exam Vitals: Temp Pulse Resp BP Pulse Ox 98.2 F 90 16 130/90 97 07/31/18 09:00 07/31/18 09:00 07/31/18 09:00 07/31/18 09:00 07/31/18 09:00 - Assessment and Plan (1) CHF (congestive heart failure) Current Visit: Yes Status: Acute (2) Afib Current Visit: Yes Status: Acute (3) Shortness of breath Current Visit: Yes Status: Acute (4) Essential tremor Current Visit: Yes Status: Chronic - Time Spent with Patient Total time spent is greater than 50% in coordination of care (as documented) at patient's floor/unit and/or counseling patient: Internal Medicine: Result - Labs CBC & Chem 7: 07/29/18 02:06 07/31/18 04:34 Labs: BMP 07/31/18 04:34 Sodium 138 Potassium 3.9 Chloride 102 Carbon Dioxide 28 BUN 22 Creatinine 1.03 Glucose 105 Calcium 9.5 - ABG Interpretation ABG results: PT/INR, D-dimer PT 12.0 Seconds (9.4-12.1) 07/29/18 02:06 - Attending Attestation I examined this patient and my medical decision-making was reviewed with the Resident Physician Dr Muir. I agree with the documented findings, disposition and treatment plan as described except to the extent set forth below/addl details below He presented with new onset CHF and Afib of duration unknown but new dx He has had sob x5 weeks, was treated outpt for bronchitis with sob, cough, chest pain/pressure at that time. Post treatment cough improved but sob and chest pain/pressure did not improve. Worsening sob and developed orthopnea, pnd, le edema and cont chest discomfort in recent week. He is being followed by cardiology and will require ischemic work up. awake, family at bedside, denies any chest painovernight, no palpitations, presycnope. no sob at rest on ra, but sob with exertion and cont to have orthopnea. He remains net + this admit despite lasix dosing increase yesterday, pt noting large output of urine General: awake, alert, appears stated age, obese Cardiovascular:regular rate and irreg/irreg rhythm, normal S1 & S2, no rubs, murmurs or gallops. trace pitting lower extremity edema Lungs:Normal breath sounds, no wheezes, diminished bl bases, Normal respiratory effort on o2 nc Abdomen:Soft, non-tender, non-distended, + bowel sounds Neurological: AAOx3 Afib, rate controlled, unknown duration- on hep gtt, cards following, cont AC, toprol xl daily started, cards is weathers checking noac for him Acute Systolic CHF echo 07/28: LVEF grossly 35-40%. -IV diuresis increased 07/30 as net + this admit, cont to monitor strict i/os, clinically beginning to improve -cards following, statin/bb/acei/ is allergic to aspirin Need to rule out ischemic cause of these newly diagnosed cardiac diseases- [facility] today Prediates with AC 5.7%- diet and lifestyle modifications, fu with pcp HLD on lipid panel - statin <Lynette Muir - Last Filed: 07/31/18 12:33> (1) CHF (congestive heart failure) Qualifiers: Heart failure type: unspecified Heart failure chronicity: unspecified Quali fied Code(s): I50.9 - Heart failure, unspecified (2) Afib Qualifiers: Atrial fibrillation type: unspecified Qualified Code(s): I48.91 - Unspecified atrial fibrillation <Karin Zelaya - Last Filed: 07/31/18 13:40> (1) CHF (congestive heart failure) Qualifiers: Heart failure type: unspecified Heart failure chronicity: unspecified Q ualified Code(s): I50.9 - Heart failure, unspecified (2) Afib Qualifiers: Atrial fibrillation type: unspecified Qualified Code(s): I48.91 - Unspecified atrial fibrillation
--- NOTE | 2018-07-31 08:34 | Pre-Sedation Evaluation ---
Pre-sedation evaluation - Pre-sedation checklist Date of procedure: 07/31/18 Procedure: [facility] Recent Vitals: Last Vital Signs Temp 97.7 F 07/31/18 05:13 Pulse 86 07/31/18 05:13 Resp 18 07/31/18 05:13 BP 120/90 07/31/18 05:13 Pulse Ox 94 07/31/18 01:00 H&P (including ROS) documented in medical record: Yes Previous reaction to sedatives/anesthetics: No Dietary Status: NPO after Midnight Airway Assessment: Patient can open mouth completely, TMJ function normal ASA Classification *see protocol: CLASS II-Mild systemic disease Plan of Care: Pt appropriate candidate for procedure/moderate/conscious sedation, Risks/benefits of procedure/sedation discussed w/ patient/family Cardiac Registry (Cardio Only) - Functional Capacity Functional Capacity: >=4 METS with symptoms - Clincal Frailty Scale Clinical Frailty Scale: Managing Well
[2018-07-31] MEDS: Primidone 50 MG TABLET PO SCH (09:26)
[2018-07-31] MEDS: Metoprolol XL (24 HR) Succ 25 MG TAB.ER.24H PO SCH (09:26)
[2018-07-31] MEDS: Furosemide 40 MG/4 ML VIAL IVP SCH ×2 (09:26→17:00)
--- NOTE | 2018-07-31 10:13 | Event Note ---
Date of Encounter: 07/31/18 Time of Encounter: 10:10 - Cardiology Event Note Plan for [facility] today for new CMP. R/B/A discussed. Pt agrees to proceed. [facility] today. A-Fib, Currently on heparin gtt for AC. [id number] 3 (Age, HTN, CHF). Discussed Coumadin vs NOAC. Pt prefers NOAC. Will weathers check. Continue to follow.
[2018-07-31 10:49] LABS: Estimated Average Glucose 117 mg/dl; Hemoglobin A1C 5.7 %
[2018-07-31 11:24] LABS: Estimated Average Glucose 117 mg/dl; Hemoglobin A1C 5.7 %
[2018-07-31] MEDS ORDERED: Verapamil 5 MG/2 ML VIAL ONE (12:27)
[2018-07-31] MEDS ORDERED: Heparin 1,000 UNITS/500 mL 500 ML ONE (12:28)
[2018-07-31] MEDS ORDERED: *HR* Heparin 10,000 UNIT/10 ML VIAL ONE (12:28)
[2018-07-31] MEDS ORDERED: ISOVUE-370 200 ML INFUS..BTL IV ONE ×2 (12:28→14:21)
[2018-07-31] MEDS ORDERED: Nitroglycerin 1,000 MCG/10 ML VIAL IV ONE (12:28)
[2018-07-31] MEDS ORDERED: 0.9 % Sodium Chloride 1,000 ML ONE ×2 (12:28→13:47)
[2018-07-31] MEDS ORDERED: *HR* Midazolam HCl 2 MG/2 ML VIAL ONE (13:39)
[2018-07-31] MEDS ORDERED: *HR* FentaNYL (PF) 100 MCG/2 ML VIAL ONE (13:39)
[2018-07-31] MEDS ORDERED: Tirofiban 12.5 MG/250ML 12.5 MG/250 ML BAG ONE (14:22)
[2018-07-31] MEDS ORDERED: Tirofiban 12.5 MG/250ML 12.5 MG/250 ML BAG IVC SCH (14:45)
[2018-07-31] MEDS ORDERED: Aspirin 81 MG TAB.CHEW ONE (14:45)
--- NOTE | 2018-07-31 14:59 | Invasive Diagnostic Lab Proc ---
Name: Les Pardo Date of Study: 07/31/2018 Date: 1950 Ht: 71.7in Medical Record#: [id number] Age: 68 Wt: 306.44lb Gender: Male BSA: 2.55 Order #: [id number] BMI: 41.96 Physicians Procedure Physician: Alexey Mullen MD, [facility] Referring MD: Referring MD: Staff Name Position Time In Joseline Coelho RN Curing Press Operator 01:45 PM Claribel Reyes RT (R) Scrub 01:45 PM Hillary Vila RT Monitor 01:45 PM Procedures Performed Procedure L HRT ARTERY/VENTRICLE ANGIO Pre-Procedure Checklist Informed consent is complete signed and on chart. H&P is on chart. ID band is on and ID verified with patient. Patient NPO for procedure The procedure was described for the patient and questions were answered. ECG is on chart. Rhythm: Atrial Fib/Flutter Plan of Care Patient will tolerate the procedure without complications. Adequate level of comfort will be maintained. Hemodynamics will remain stable Patient will recover from procedure without complications. Respiratory function will be maintained. Cardiac rhythm will remain stable. Patient temperature will be maintained. Patient and/or family have verbalized understanding of the procedure. Patient Education Chief Complaint/Reason for Test: Cardiac Cath Developmental Category: Geriatric (65+ years) Developmentally Appropriate for Age: Yes Learning Barriers: None Education Needs: Procedure Education Method: Verbal Information Taught: Cardiac Cath Educational Evaluation: Able to repeat information Intravenous Access Time IV Size Location DC'd Fluid/Drip Rate Units RN 01:00 AM 20g 1 1/4" Patent On Arrival Lt Antecubital 0.9NaCl 20g 1 1/4" Patent On Arrival Lt Hand Allergies aspirin Penicillins Sulfa (Sulfonamide Antibiotics) acetaminophen Vital Signs Time BP (mmHg) HR (bpm) O2 Sat. RR (bpm) LOC 02:07 PM 131 / 77 95 91 % 9 02:12 PM 125 / 89 90 91 % 14 02:18 PM 123 / 84 74 91 % 30 02:22 PM 137 / 82 90 92 % 15 02:27 PM 138 / 82 83 90 % 20 02:32 PM 128 / 70 76 91 % 22 02:37 PM 128 / 77 104 92 % 22 01:47 PM 191 / 173 90 95 % 19 01:48 PM 144 / 133 84 94 % 17 01:53 PM 143 / 89 91 97 % 17 01:57 PM 118 / 72 98 92 % 15 02:02 PM 120 / 77 77 91 % 15 Procedural Medications Time Medication Dose Units Method Given By 01:46 PM Oxygen 2 L/min nasal cannula Joesline Coelho RN 01:50 PM Versed 2 mg Intravenous Joseline Coelho RN 01:51 PM Fentanyl 50 mcg Intravenous Joseline Coelho RN 02:06 PM Lidocaine 2% 0.5 ml Subcutaneous Alexey Mullen MD, FACC 02:25 PM Aggrastat Bolus: 71 ml Intravenous Joseline Coelho RN 02:25 PM Aggrastat 12.5mg/250ml 25.5 ml Intravenous Joseline Coelho RN 02:52 PM Plavix 600 mg Orally Joseline Coelho RN 02:52 PM Aspirin (81mg) 162 mg Orally Joseline Coelho RN ASA Classification: CLASS II- Mild systemic disease (i.e. well-controlled diabetes, hypertension, asthma, cigarette smoking) Irvin Score Preprocedure Postprocedure Activity 2- Moves 4 extremities sustained head lift Activity 2- Moves 4 extremities sustained head lift Circulation 2- SBP +/= 20 points of pre-anesthetic level Circulation 2- SBP +/= 20 points of pre-anesthetic level Consciousness 2- Awake and alert oriented x 3 Consciousness 2- Awake and alert oriented x 3 O2 Saturation 2- Able to maintain O2 satruation of 92% on room air O2 Saturation 2- Able to maintain O2 satruation of 92% on room air Respiratory 2- Able to deep breathe and cough well Respiratory 2- Able to deep breathe and cough well Total Score 10 Total Score 10 Contrast Agent: Isovue Diagnostic Contrast: 214 ml Total Contrast: 214 ml Fluoro Dose: 91 mGy Activated Clotting Time Time Seconds to Clot 02:17 PM 385 Procedure Log Time Note Enter By 12:41 PM Procedure start 12:41 [email or web address] 01:39 PM Pt arrived to blood and plasma laboratory assistant 1 at 13:39 [email or web address] 01[facility] PM Sign in performed according to hospital policy. Informed consent was obtained. [facility] 01:40 PM Physician arrived 13:40 [email or web address] 01:40 PM Meet and greet completed [facility] 01:45 PM Joseline Coelho RN Position: Curing Press Operator Time in: 13:40 [email or web address] [id number] 01:45 PM Claribel Reyes RT (R) Position: Scrub Time in: 13:40 [email or web address] 01:45 PM Hillary Vila RT Position: Monitor Time in: 13:40 [email or web address] 01:45 PM Patient charges- Angio tray pack, Navilyst 3mm J, Pulse Oximetry and ACIST tubing and transducer [email or web address] 01:45 PM Vitals capture started with the following parameters, Patient=Adult, Interval=5 min, Initial Bqdppzqr=084 mmHg, Deflation Rate=3 mmHg, Cuff placed on Right Arm 01:46 PM Recorded Pressure: HR=81, Condition=Condition 1 01:46 PM Recorded ECG: HR=84 Condition=Condition 1 01:46 PM Case Delayed No [email or web address] 01:47 PM Time: 13:46 Oxygen on at 2 L/min per nasal cannula by Joseline Coelho RN [email or web address] 01:47 PM ASA Class CLASS II- Mild systemic disease (i.e. well-controlled diabetes, hypertension, asthma, cigarette smoking) [email or web address] 01:47 PM HR=90 bpm, OMFW=682/173 mmhg, SpO2=95.0 %, Resp=19 B/min, Comment=afib 01:47 PM NIBP STAT measurement started. 01:48 PM HR=84 bpm, PGWH=943/133 mmhg, SpO2=94.0 %, Resp=17 B/min, Comment=afib 01:50 PM Time: 13:50 Versed 2 mg Intravenous Given by Joseline Coelho RN [email or web address] 01:51 PM Time: 13:51 Fentanyl 50 mcg Intravenous Given by Joseline Coelho RN [email or web address] 01:51 PM Vitals capture stopped. 01:51 PM Vitals capture started with the following parameters, Patient=Adult, Interval=5 min, Initial Jnhszpna=973 mmHg, Deflation Rate=3 mmHg, Cuff placed on Right Arm 01:53 PM HR=91 bpm, ZCID=323/89 mmhg, SpO2=97 %, Resp=17 B/min 01:57 PM Pressure channel 1 zeroed. 01:57 PM HR=98 bpm, YUMD=098/72 mmhg, SpO2=92.0 %, Resp=15 B/min, Comment=afib 02:02 PM HR=77 bpm, IDOZ=243/77 mmhg, SpO2=91.0 %, Resp=15 B/min, Comment=afib 02:03 PM Time out was performed according to hospital policy. Conscious sedation and anesthesia was achieved (see medication log with in this report above) [email or web address] 02:06 PM Time: 14:06 0.5 ml Lidocaine 2% to left radial Subcutaneous Given by Alexey Mullen MD, [facility] [email or web address] 02:06 PM Access obtained by percutaneous puncture. 6Fr 10cm Terumo Glidesheath sheath placed in right Radial artery. [id number] [email or web address] 02:07 PM HR=95 bpm, SSRY=092/77 mmhg, SpO2=91.0 %, Resp=9 B/min, Comment=afib 02:07 PM Recorded Pressure: Ao, HR=93, Condition=Condition 1 (Aorta) Ao 94/77/86 02:07 PM 5Fr TIG catheter inserted over the wire [facility] [email or web address] 02:07 PM LCA angiography performed in multiple views. [email or web address] 02:11 PM Catheter removed [email or web address] 02:11 PM 5Fr FR 4 catheter inserted over the wire DN [email or web address] 02:11 PM RCA angiography performed in multiple views. [email or web address] 02:11 PM Catheter removed [email or web address] 02:11 PM 5Fr Pigtail catheter inserted over the wire DN [email or web address] 02:12 PM HR=90 bpm, IWWP=202/89 mmhg, SpO2=91.0 %, Resp=14 B/min 02:12 PM Catheter removed [email or web address] 02:13 PM 6Fr RBL 3.5 Convey guide catheter was used to cannulate the PCI vessel successfully. reused? No [email or web address] 02:13 PM wire removed [email or web address] 02:13 PM ACT drawn [email or web address] 02:14 PM Recorded Pressure: LV, HR=97, Condition=Condition 1 (Left Ventricle) LV 103/8/7 02:14 PM Recorded Pressure: LV, Ao, HR=94, Condition=Condition 1 (Left Ventricle) LV 97/6/9, (Aorta) Ao 109/78/92 02:14 PM Catheter crossed the aortic valve and was selectively placed in the left ventricle. Pressures recorded on pullback for left heart catheterization. [email or web address] 02:14 PM pressures recorded [email or web address] 02:15 PM Recorded Pressure: Ao, HR=88, Condition=Condition 1 (Aorta) Ao 105/74/89 02:17 PM .014 [place] 190cm guide wire across target lesion- successful. reused? No [email or web address] 02:17 PM At 14:17 the ACT was 385 seconds. [email or web address] 02:17 PM Coronary Dominance: Co-dominant [email or web address] 02:18 PM HR=74 bpm, TKCT=630/84 mmhg, SpO2=91.0 %, Resp=30 B/min 02:18 PM Lesion found in Distal RCA. Pre Stenosis: 90 Pre MARY Flow: [email or web address] 02:18 PM Lesion found in 1st Marginal. Pre Stenosis: 70 Pre MARY Flow: [email or web address] 02:19 PM Lesion found in Mid Circumflex. Pre Stenosis: 20 Pre MARY Flow: [email or web address] 02:19 PM Lesion found in Distal LAD. Pre Stenosis: 99 Pre MARY Flow: 3: Complete and Brisk Flow/Perfusion [email or web address] 02:20 PM 2.25 mm x 8 mm Emerge Monorail balloon across target lesion- successful. reused? No [email or web address] 02:22 PM HR=90 bpm, TLXD=272/82 mmhg, SpO2=92 %, Resp=15 B/min 02:23 PM Balloon inflated @ 12 brooke for 14 seconds [email or web address] 02:23 PM Balloon catheter removed intact. [email or web address] 02:23 PM 2.5mm x 17mm Cordis EluNIR drug-eluting stent across target lesion- successful Lot #[id number] [email or web address] 02:24 PM Stent deployed @ 16 brooke for 18 seconds [email or web address] 02:25 PM Time: 14:25 Aggrastat Bolus: 71 ml Intravenous Given by Joseline Coelho RN Cruz pump [email or web address] 02:25 PM Time: 14:25 Aggrastat 12.5mg/250ml 25.5 ml Intravenous Given by Joseline Coelho RN Cruz pump [email or web address] 02:27 PM HR=83 bpm, JFNF=225/82 mmhg, SpO2=90.0 %, Resp=20 B/min 02:30 PM Stent delivery system removed intact. [email or web address] 02:30 PM 2.25mm x 12mm Synergy drug-eluting stent across target lesion- successful Lot #[id number] [email or web address] 02:32 PM HR=76 bpm, BJFL=025/70 mmhg, SpO2=91.0 %, Resp=22 B/min 02:32 PM Stent deployed @ 12 brooke for 15 seconds [email or web address] 02:33 PM wire removed [email or web address] 02:33 PM Stent delivery system removed intact. [email or web address] 02:36 PM Procedure completed at 14:36 07/31/2018 [email or web address] 02:36 PM Did you address MARY flow and Dominance? Yes [email or web address] 02:37 PM AX=231 bpm, TWBL=169/77 mmhg, SpO2=92 %, Resp=22 B/min 02:37 PM Sign out completed: Radiation Dose 1264.51 mGy, 91.052 Gy/cm2 Fluoro Time: 10.2 Isovue 370 - 200ml contrast 214 ml given by Alexey Mullen MD, [facility]. Complications: None. The patient was discharged out of the slab worker in stable condition. Cardiac Rehab Consult needed: YesConfirmed administered medications: Yes [email or web address] 02:39 PM Isovue 370 - 200ml,2 Bottle(s) used. [email or web address] 02:39 PM 9 ml air in Vasc Band. [email or web address] 02:39 PM Estimated Blood Loss: minimal [email or web address] 02:39 PM Post ECG NSR [email or web address] 02:39 PM Post Blood Pressure 128/77 [email or web address] 02:40 PM 14:40 Post Pulses Bilateral DP & PT 1+ [email or web address] 02:40 PM Information taught Cardiac Cath and Vasc Band [email or web address] 02:40 PM Education needs Procedure, Plan of Care, and Responsibilities of Patient in Care [email or web address] 02:40 PM Learning barriers :None [email or web address] 02:40 PM Education Methods Verbal [email or web address] 02:40 PM Education evaluation Able to repeat information [email or web address] 02:40 PM Site status No bleeding/hematoma - Rt Wrist as reported by Sites, Claribel RT (R) at 14:40 [email or web address] 02:40 PM Opsite applied [email or web address] 02:42 PM Vitals capture stopped. 02:43 PM Report given to Leandra AYALA Pt taken to E Room #23. 14:42 [email or web address] 02:46 PM Plavix, Effient or Brilinta given Yes [email or web address] 02:46 PM Delay to floor No [email or web address] 02:46 PM Patient out of room: 14:46 [email or web address] 02:47 PM Family placed in consult room. [email or web address] 02:47 PM Complications: None [email or web address] 02:48 PM Left Main Coronary Artery with 0% stenosis [email or web address] 02:48 PM Proximal Left Anterior Descending Coronary Artery with 0% stenosis. If graft is supplying this territory, 0 % stenosis. [email or web address] 02:48 PM Mid/Distal Left Anterior Descending Coronary Artery and diagonal branches with 99% stenosis. If graft is supplying this area, 0 % stenosis [email or web address] 02:48 PM Circumflex, Obtuse Marginal, Left Posterior Descending, and Left Posterolateral Coronary Arteries with 70 % stenosis. If graft is supplying this area, 0 % stenosis [email or web address] 02:48 PM Right Coronary, Right Posterior Descending Arteries with Right Posterolateral and Acute Marginal branches with 90 % stenosis. If graft is supplying this area, 0 % stenosis [email or web address] 02:48 PM Ramus with 0% stenosis. If graft is supplying this area, 0 % stenosis [email or web address] 02:52 PM Time: 14:52 Plavix 600 mg Orally Given by Joseline Coelho RN [email or web address] 02:52 PM Time: 14:52 Aspirin (81mg) 162 mg Orally Given by Joseline Coelho RN [email or web address] Complications Complication None None None Hemodynamics Pressures Site Systolic/A Wave Diastolic/V Wave Mean AO 94 77 86 LV 103 8 7 LV 97 6 9 AO 109 78 92 AO 105 74 89 Post Procedure Information Blood Pressure: 128/77 mmHg Rhythm: NSR Post procedural instructions were given Site Checks Time Location Status Staff Sheath In? Note 02:40 PM Rt Wrist No bleeding/hematoma Sites, Claribel RT (R) Pulses Time Site Pre-Procedure Post-Procedure Note Bilateral radial 2+ Bilateral DP & PT 1+ 2:40:00 PM Bilateral DP & PT 1+ Updated by Louann Kenyon, RT(R) on 07/31/2018 2:52:49 PM electronically signed on 07/31/2018 2:53:10 PM with status of Final
[2018-07-31] MEDS ORDERED: traMADol 50 MG TABLET PO ONE (22:33)
[2018-08-01 03:53] LABS: Basophils # 0.1 K/mcL (0.0-0.2); Basophils % 0.6 %; Eosinophils # 0.1 K/mcL (0.0-0.6); Eosinophils % 1.4 %; Hematocrit 53.1 % (37.5-50.1); Hemoglobin 17.9 g/dL (12.9-16.9); Immature Granulocytes % 0.3 % (0-4); Lymphocytes # 2.8 K/mcL (0.6-4.6); Lymphocytes % 32.1 %; Mean Corpuscular HGB Conc 33.7 g/dL (31.6-35.5); Mean Corpuscular Hemoglobin 31.9 pg (28.0-33.3); Mean Corpuscular Volume 94.5 fL (83.0-100.0); Mean Platelet Volume 9.7 fL (9.4-12.4); Monocytes # 0.9 K/mcL (0.0-1.3); Monocytes % 10.6 %; Neutrophils # 4.8 K/mcL (1.6-8.9); Platelet Count 161 K/mcL (140-400); Red Blood Count 5.62 M/mcL (4.19-5.50); Red Cell Distribution Width 12.8 % (11.5-14.5)
[2018-08-01 04:13] LABS: BUN/Creatinine Ratio 19 (6-26); Blood Urea Nitrogen 20 mg/dL (8-23); Calcium 9.8 mg/dL (8.6-10.3); Carbon Dioxide 30 mEq/L (23-29); Chloride 100 mEq/L (98-107); Glucose 105 mg/dL (70-105); Osmolality,Calculated 291 (280-300); Potassium 3.9 mEq/L (3.5-5.1); Sodium 139 mEq/L (136-145); eGFR For Non-African Americans > 60 (> 60)
--- NOTE | 2018-08-01 08:28 | Internal Med Progress Note ---
<Levi Juarez - Last Filed: 08/01/18 12:07> Hospitalist Progress Note - Encounter Date of Encounter: 08/01/18 Time of Encounter: 08:00 - Subjective Interval History: Pt seen and examined. Sitting comfortably in bed. He complains of R wrist pain at the cath insertion site. States he is breathing better and LE edema is improving. He has sob when laying flat still that improves when sitting up. Says 2L O2 nc helps when this occurs. He states he has not had any dizziness today. Denies cp, N/V, abdominal pain. - Exam Vitals: Temp Pulse Resp BP Pulse Ox 97.5 F L 94 16 84/70 97 08/01/18 08:02 08/01/18 08:02 08/01/18 06:09 08/01/18 08:02 08/01/18 08:02 Exam: General: Morbidly obese. AO x 3. No acute distress or signs of toxicity. Well developed, well nourished. Head: atraumatic, normocephalic. ENT: No conjunctival injection, no scleral icterus. Pupils equal and round. EOMI. mucous membranes moist. Pulm: Lungs CTAB A/P. No wheezes, rales, ronchi. Cardio: Heart rate irregular. Abd: Soft, non-distended. Normoactive bowel sounds. Non-tender to palpation. No guarding. Non rigid. Extremities: Radial pulses 2+ bong, Mild 1+ bong edema LE Skin: warm, dry, intact. No rashes. R wrist bandaged from cath site, no bleeding or hematoma evident when undressed. Psych: Appropriate mood and affect. Answers questions appropriately. Cooperative with exam. - Assessment and Plan (1) CHF (congestive heart failure) Current Visit: Yes Status: Acute Assessment and Plan: Patient presented with worsening SOB, orthopnea, and leg swelling. Acute systolic CHF. New onset. Echo showed LVEF 35-40%, mod LV systolic dysfunction. No pHTN. Lasix was given in ER, as well as day before by PCP. Patient states that he is having increased urine output. Lasix increased 07/30 to 40 BID due to low net output. Assess net output tomorrow and adjust dose if needed. Lisinopril started 07/30. Daily weights. Strict I&Os. Continue to monitor. Cardiology consulted and following. LE edema improving, orthopnea present but better. Had LHC yesterday and 2 stents were placed. Plan to return to laboratory veterinarian for 3rd stent on Tue. (2) Afib Current Visit: Yes Status: Acute Assessment and Plan: On admission, A-fib on EKG, rate <100. New diagnosis, unknown duration. Rule out ischemic cause. Serial troponins are negative. EKG is negative for acute ischemic changes. Echo showed LVEF 35-40%. No clot. Patient was started on heparin drip. Was started on Toprol. No ASA due to allergy. Continue to monitor. Cardiology consulted and following. C yesterday. 2 stents placed with plans for 3rd on Tue. [id number] 3 [place]AC for antico[place], checking on pricing. (3) Shortness of breath Current Visit: Yes Status: Acute Assessment and Plan: Likely secondary to Afib and CHF Improved Continue to monitor He asked about home O2, will assess for home oxygen need at discharge (4) Essential tremor Current Visit: Yes Status: Chronic Assessment and Plan: Pt has been taking primadone 50mg at home, continue home medication DVT Prophylaxis: Heparin infusion - Time Spent with Patient Total time spent is greater than 50% in coordination of care (as documented) at patient's floor/unit and/or counseling patient: less than 15 minutes Plan of Care Discussed with: patient Internal Medicine: Result - Labs CBC & Chem 7: 08/01/18 03:13 08/01/18 03:13 Labs: Short CBC 08/01/18 Range/Units 03:13 WBC 8.7 (4.3-11.1) K/mcL Hgb 17.9 H (12.9-16.9) g/dL Hct 53.1 H (37.5-50.1) % Plt Count 161 (140-400) K/mcL Neutrophils # 4.8 (1.6-8.9) K/mcL BMP 08/01/18 03:13 Sodium 139 Potassium 3.9 Chloride 100 Carbon Dioxide 30 H BUN 20 Creatinine 1.05 Glucose 105 Calcium 9.8 - ABG Interpretation ABG results: PT/INR, D-dimer PT 12.0 Seconds (9.4-12.1) 07/29/18 02:06 Consult Discharge Plan - Plan Referrals: Pete Govea MD [Primary Care Provider] - 08/07/18 3:30 pm <Brian Jaquez - Last Filed: 08/01/18 16:37> Hospitalist Progress Note - Exam Vitals: Temp Pulse Resp BP Pulse Ox 97.6 F 90 16 118/72 93 08/01/18 11:59 08/01/18 11:59 08/01/18 11:59 08/01/18 11:59 08/01/18 11:59 - Assessment and Plan (1) CHF (congestive heart failure) Current Visit: Yes Status: Acute (2) Afib Current Visit: Yes Status: Acute (3) Shortness of breath Current Visit: Yes Status: Resolved (4) Essential tremor Current Visit: Yes Status: Chronic (5) CAD (coronary artery disease) Current Visit: Yes Status: Acute (6) Morbid obesity with BMI of 40.0-44.9, adult Current Visit: Yes Status: Chronic - Time Spent with Patient Total time spent is greater than 50% in coordination of care (as documented) at patient's floor/unit and/or counseling patient: Internal Medicine: Result - Labs CBC & Chem 7: 08/01/18 03:13 08/01/18 03:13 Labs: Short CBC 08/01/18 Range/Units 03:13 WBC 8.7 (4.3-11.1) K/mcL Hgb 17.9 H (12.9-16.9) g/dL Hct 53.1 H (37.5-50.1) % Plt Count 161 (140-400) K/mcL Neutrophils # 4.8 (1.6-8.9) K/mcL BMP 08/01/18 03:13 Sodium 139 Potassium 3.9 Chloride 100 Carbon Dioxide 30 H BUN 20 Creatinine 1.05 Glucose 105 Calcium 9.8 - ABG Interpretation ABG results: PT/INR, D-dimer PT 11.2 Seconds (9.4-12.1) 08/01/18 12:29 - Attending Attestation I examined this patient and my medical decision-making was reviewed with the Resident Physician on 08/01/18. I agree with the documented findings, disposition and treatment plan as described except to the extent set forth below. Mr Pardo is currently admitted for acute exac CHF and cardiomyopathy. He remains moderate to high risk due to potential for worsening clinical status. Mr Pardo is still having some dyspnea. He is s/p cath yesterday. Needing to start anticoagulation. No fever or chills. Exam Alert Comfortable Mucus membranes dry Heart irreg No wheeze Abd soft Edema present I/P 1. Exac CHF 2. CAD Further diagnoses and plan as above. <Levi Juarez - Last Filed: 08/01/18 12:07> (1) CHF (congestive heart failure) Qualifiers: Heart failure type: unspecified Heart failure chronicity: unspecified Qualified Code(s): I50.9 - Heart failure, unspecified (2) Afib Qualifiers: Atrial fibrillation type: unspecified Qualified Code(s): I48.91 - Unspecified atrial fibrillation <Brian Jaquez - Last Filed: 08/01/18 16:37> (1) CHF (congestive heart failure) Qualifiers: Heart failure type: systolic Heart failure chronicity: acute on chronic Qualified Code(s): I50.23 - Acute on chronic systolic (congestive) heart failure (2) Afib Qualifiers: Atrial fibrillation type: chronic Qualified Code(s): I48.2 - Chronic atrial fibrillation (5) CAD (coronary artery disease) Qualifiers: Coronary Disease-Associated Artery/Lesion type: [place] artery [place] vs. transplanted heart: [place] heart Associated angina: without angina Qualified Code(s): I25.10 - Atherosclerotic heart disease of [place] coronary artery without angina pectoris
[2018-08-01] MEDS: Aspirin 81 MG TAB.CHEW PO SCH (09:53)
[2018-08-01] MEDS: Primidone 50 MG TABLET PO SCH (09:54)
[2018-08-01] MEDS: Metoprolol XL (24 HR) Succ 25 MG TAB.ER.24H PO SCH (09:54)
[2018-08-01] MEDS: Furosemide 40 MG/4 ML VIAL IVP SCH ×2 (10:09→18:07)
[2018-08-01] MEDS ORDERED: *HR* Heparin 5,000 UNIT/ML VIAL IVP ONE (12:01)
[2018-08-01] MEDS ORDERED: *HR* Heparin 5,000 UNIT/ML VIAL IVP PRN ×2 (12:01)
--- NOTE | 2018-08-01 12:30 | Cardiology Progress Note ---
Date of Encounter: 08/01/18 Time of Encounter: 12:28 Assessment and Plan (1) CHF (congestive heart failure) Current Visit: Yes Status: Acute New diagnosis of systolic dysfunction. TTE LVEF grossly 35-40%. Moderate global left ventricular systolic dysfunction. Normal right ventricular structure and function. Mild mitral regurgitation. Mild pulmonic regurgitation. On IV diuresis 40mg IV BID. CXR 07/28/18 Improved perihilar opacities suggest resolving pulmonary edema. Mild cardiomegaly. Recommend strict I/O, Na and fluid restriction, daily weights. Plan to transition to PO Lasix prior to d/c. Continue BB and ACEi. Qualifiers: Heart failure type: unspecified Heart failure chronicity: unspecified Qualified Code(s): I50.9 - Heart failure, unspecified (2) CAD (coronary artery disease) Current Visit: Yes Status: Acute LHC yesterday with PCI to LAD and OM. Final report pending. Needs staged PCI of RCA inpt vs outpt. Discussed with pt. He prefers to stay inpt for staged PCI tomorrow. NPO after midnight. DAPT (ASA and Plavix) uninterrupted x 1 year. Pt verbalizes understanding. Continue BB, Statin, ACEi. TTE EF 35-40%, global. Will need repeat TTE 3 months post revascularization. Right radial access site healing well. No bleeding, hematoma or ecchymosis noted. Qualifiers: Coronary Disease-Associated Artery/Lesion type: [place] artery [place] vs. transplanted heart: [place] heart Associated angina: angina presence unspecified Qualified Code(s): I25.10 - Atherosclerotic heart disease of [place] coronary artery without angina pectoris (3) Afib Current Visit: Yes Status: Acute Found to be A-Fib on admission. Uncertain duration but suspect this is not acute onset but new diagnosis. Currently rate controlled on BB. [id number] 4 (Age, HTN, CHF, CAD). Started heparin gtt. High CVA risk. Recommend AC. Unfortunately there is interaction with his Primidone and NOACs. He currently refuses Coumadin. Will discuss with primary team/pharmacy to see if there are any alternatives to Primidone that could be safely given with NOACs. Qualifiers: Atrial fibrillation type: unspecified Qualified Code(s): I48.91 - Unspecified atrial fibrillation Discussion w patient/family: The assessment and plan as outlined above was discussed with the patient and/or family members who expressed understanding and agreement. All questions were answered. Thank you for involving us in the care of your patient. Please call with any questions. I will discuss all the above with Dr. Jimenes and make changes as necessary. Subjective Principal diagnosis: CHF, A-Fib, CAD, CMP Interval history: Underwent LHC yesterday for CMP. LHC with PCI to LAD and OM with recommended staging of RCA at a later time. No acute complaints this AM. Objective Vital Signs, Last 4 Hours Temp Pulse Resp BP Pulse Ox 08/01/18 11:59 97.6 F 90 16 118/72 93 08/01/18 10:02 90 16 124/70 Vital Signs Temp Pulse Resp BP Pulse Ox 08/01/18 11:59 97.6 F 90 16 118/72 93 08/01/18 10:02 90 16 124/70 08/01/18 08:02 97.5 F L 94 84/70 97 08/01/18 06:09 97.9 F 84 16 134/71 94 08/01/18 01:00 98.2 F 98 17 102/65 93 07/31/18 22:39 98.9 F 88 17 106/74 96 07/31/18 17:30 99 18 110/64 07/31/18 17:00 102 20 154/92 07/31/18 16:45 94 20 129/90 07/31/18 16:30 95 18 102/81 07/31/18 16:15 76 18 107/87 07/31/18 16:00 71 18 117/90 07/31/18 15:45 18 128/82 07/31/18 15:30 78 18 126/89 07/31/18 15:15 89 18 122/104 07/31/18 15:00 85 145/113 Intake and Output 07/31/18 08/01/18 08/01/18 23:59 07:59 15:59 Intake Total 100 / 100 400 / 400 360 / 360 Output Total 350 / 350 0 / 0 Balance -250 / -250 400 / 400 360 / 360 Intake: IV Fluids 100 / 100 400 / 400 Heparin 25,000 UNIT/500 ML D5W 250 / 250 25,000 unit In 500 ml @ 14 UNIT /KG/HR 39.704 mls/hr IVC . [id number] JOY[facility] Rx#:[id number] Aggrast[place] 12.5 MG/250 ML 12.5 100 / 100 150 / 150 mg In 250 ml @ 0.15 MCG/KG/MIN 25.02 mls/hr IVC .Q10H JOYCE Rx#: [id number] Oral 0 / 0 0 / 0 360 / 360 Output: Urine 350 / 350 0 / 0 Other: Meal Breakfast Percent of Meal Consumed 100% Weight 137.4 kg Patient Weight 08/01/18 23:59 Weight 137.4 kg General: Conversant, No Apparent Distress HEENT: Atraumatic, Normocephaly, Mucus Membranes Moist Neck: No JVD, Normal carotid pulses Cardiac: Other (irregularly irregular) Lungs: Other (diminished) Neuro: Alert and responsive, No focal deficits noted Abdomen: Soft, Non-Tender Skin: Other (right radial access site healing well. No bleeding, hematoma or ecchymosis noted.) Musculoskeletal: No Chest Wall Tenderness Extremities: Other (mild LE edema) Results 08/01/18 03:13 08/01/18 03:13 Lab Results 08/01/18 08/01/18 08/01/18 03:13 03:13 03:13 WBC 8.7 Hgb 17.9 H Hct 53.1 H Plt Count 161 Sodium 139 Potassium 3.9 Chloride 100 Carbon Dioxide 30 H BUN 20 Creatinine 1.05 Glucose 105 Calcium 9.8 B-Natriuretic Peptide 178 H Short CBC 08/01/18 Range/Units 03:13 WBC 8.7 (4.3-11.1) K/mcL Hgb 17.9 H (12.9-16.9) g/dL Hct 53.1 H (37.5-50.1) % Plt Count 161 (140-400) K/mcL Neutrophils # 4.8 (1.6-8.9) K/mcL BMP 08/01/18 Range/Units 03:13 Sodium 139 (136-145) mEq/L Potassium 3.9 (3.5-5.1) mEq/L Chloride 100 (98-107) mEq/L Carbon Dioxide 30 H (23-29) mEq/L BUN 20 (8-23) mg/dL Creatinine 1.05 (0.70-1.30) mg/dL Glucose 105 (70-105) mg/dL Calcium 9.8 (8.6-10.3) mg/dL Active Medications Aspirin (Aspirin) 81 mg PO DAILY [facility] Stop: 01/31/19 09:01 Last Admin: 08/01/18 09:53 Dose: 81 mg Atorvastatin Calcium (Lipitor) 40 mg PO HS [facility] Stop: 01/28/19 21:01 Last Admin: 07/31/18 22:28 Dose: 40 mg Clopidogrel Bisulfate (Plavix) 75 mg PO DAILY [facility] Stop: 01/31/19 09:01 Last Admin: 08/01/18 09:54 Dose: 75 mg Furosemide (Lasix) 40 mg IVP BIDDIURETIC [facility] Stop: 01/29/19 09:16 Last Admin: 08/01/18 10:09 Dose: 40 mg Heparin Sodium (Porcine) (Heparin) 9,000 unit IVP Q6HR PRN PRN Reason: SEE COMMENTS Stop: 01/28/19 01:25 Heparin Sodium (Porcine) (Heparin) 4,500 unit IVP Q6H PRN PRN Reason: SEE COMMENTS Stop: 01/28/19 01:25 Heparin Sodium (Porcine) (Heparin) 9,000 unit IVP ONCE ONE Stop: 08/01/18 12:02 Heparin Sodium (Porcine) (Heparin) 9,000 unit IVP Q6HR PRN PRN Reason: SEE COMMENTS Stop: 01/31/19 12:02 Heparin Sodium (Porcine) (Heparin) 4,500 unit IVP Q6H PRN PRN Reason: SEE COMMENTS Stop: 01/31/19 12:02 Heparin Sodium/Dextrose (Heparin 25,000 Unit/500 Ml D5w) 25,000 unit in 500 mls @ 38.472 mls/hr IVC .Q13H [facility]; Protocol Stop: 01/31/19 12:16 Lisinopril (Zestril) 2.5 mg PO DAILY [facility]; Protocol Stop: 01/29/19 10:16 Last Admin: 08/01/18 10:05 Dose: 2.5 mg Metoprolol Succinate (Toprol Xl) 25 mg PO DAILY [facility] Stop: 01/29/19 09:01 Last Admin: 08/01/18 09:54 Dose: 25 mg Naloxone HCl (Narcan) 0.4 mg IVP Q2MIN PRN PRN Reason: SEE COMMENTS Stop: 01/28/19 01:23 Primidone (Mysoline) 50 mg PO DAILY [facility] Stop: 01/28/19 09:01 Last Admin: 08/01/18 09:54 Dose: 50 mg - Imaging and Cardiology Echo: report reviewed - EKG Interpretation EKG results cardiology: other (12 hr tele AVG HR 89, A-Fib) Consult Discharge Plan - Plan Referrals: Pete Govea MD [Primary Care Provider] - 08/07/18 3:30 pm
[2018-08-01 13:05] LABS: Heparin anti-factor XA UFH 0.02 IU/mL (0.30-0.70); Prothrombin Time 11.2 Seconds (9.4-12.1)
[2018-08-01] MEDS: Heparin 25,000 UNIT/500 ML D5W 25,000 UNIT/500 ML BAG IVC SCH (13:32)
--- NOTE | 2018-08-01 17:08 | Electrocardiograph Report ---
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
[2018-08-02 01:59] LABS: Basophils # 0.1 K/mcL (0.0-0.2); Basophils % 0.9 %; Eosinophils # 0.1 K/mcL (0.0-0.6); Eosinophils % 1.8 %; Hematocrit 53.1 % (37.5-50.1); Hemoglobin 17.7 g/dL (12.9-16.9); Immature Granulocytes % 0.3 % (0-4); Lymphocytes # 3.1 K/mcL (0.6-4.6); Lymphocytes % 38.9 %; Mean Corpuscular HGB Conc 33.3 g/dL (31.6-35.5); Mean Corpuscular Hemoglobin 31.3 pg (28.0-33.3); Mean Platelet Volume 10.1 fL (9.4-12.4); Neutrophils # 3.7 K/mcL (1.6-8.9); Platelet Count 175 K/mcL (140-400); Red Blood Count 5.65 M/mcL (4.19-5.50); Red Cell Distribution Width 12.4 % (11.5-14.5); Segmented Neutrophils % 46.1 %
[2018-08-02 02:11] LABS: BUN/Creatinine Ratio 22 (6-26); Blood Urea Nitrogen 23 mg/dL (8-23); Calcium 9.4 mg/dL (8.6-10.3); Carbon Dioxide 29 mEq/L (23-29); Chloride 100 mEq/L (98-107); Glucose 111 mg/dL (70-105); Osmolality,Calculated 286 (280-300); Potassium 4.2 mEq/L (3.5-5.1); Sodium 136 mEq/L (136-145); eGFR For Non-African Americans > 60 (> 60)
[2018-08-02] MEDS: Heparin 25,000 UNIT/500 ML D5W 25,000 UNIT/500 ML BAG IVC SCH (05:18)
[2018-08-02] MEDS ORDERED: 0.9 % Sodium Chloride 1,000 ML ONE ×2 (08:51→09:26)
[2018-08-02] MEDS ORDERED: ISOVUE-370 200 ML INFUS..BTL ONE (08:51)
[2018-08-02] MEDS ORDERED: Nitroglycerin 1,000 MCG/10 ML VIAL IV ONE (08:51)
[2018-08-02] MEDS ORDERED: Heparin 1,000 UNITS/500 mL 500 ML ONE (08:51)
[2018-08-02] MEDS ORDERED: Verapamil 5 MG/2 ML VIAL ONE (08:51)
[2018-08-02] MEDS ORDERED: *HR* Heparin 10,000 UNIT/10 ML VIAL ONE (08:51)
[2018-08-02] MEDS: Aspirin 81 MG TAB.CHEW PO SCH (09:05)
[2018-08-02] MEDS: Primidone 50 MG TABLET PO SCH (09:09)
[2018-08-02] MEDS: Metoprolol XL (24 HR) Succ 25 MG TAB.ER.24H PO SCH (09:09)
--- NOTE | 2018-08-02 09:09 | Internal Med Progress Note ---
<Lynette Muir - Last Filed: 08/02/18 15:30> Hospitalist Progress Note - Encounter Date of Encounter: 08/02/18 Time of Encounter: 09:03 - Subjective Interval History: Pt had C 07/31 with placement of 2 stents - LAD and OM. Pt received 3rd stent in RCA today, needs to remain inpatient for 24 hours post-op. On Primadone 50mg for essential tremor, per neurology can be stopped immediately and started on gabapentin 100mg TID without taper. Once primadone stopped, can be started on Eliquis. Pricing checked, $8/month, will start this pm. No acute events overnight, pt states that his breathing was "fair" but he's hoping it will be better tonight after he received his third stent today. States that the swelling in his legs is improved and states he's feeling better than when he came in. I explained to pt and family the need for anti-coagulation and therefore the need to change the primadone to gabapentin. Family and pt were given an opportunity to ask questions and all of their concerns were addressed. - Exam Vitals: Temp Pulse Resp BP Pulse Ox 97.4 F L 94 17 124/96 93 08/02/18 07:22 08/02/18 07:22 08/02/18 07:22 08/02/18 07:22 08/02/18 07:22 Exam: General: Morbidly obese. AO x 3. No acute distress or signs of toxicity. Well developed, well nourished. Head: atraumatic, normocephalic. ENT: No conjunctival injection, no scleral icterus. Pupils equal and round. EOMI. mucous membranes moist. Pulm: Lungs CTAB A/P. Expiratory wheezes with prolonged expiratory period. No acute distress. Cardio: Heart rate irregular. Abd: Soft, non-distended. Normoactive bowel sounds. Non-tender to palpation. No guarding. Non rigid. Extremities: Skin: warm, dry, intact. No rashes. R wrist bandaged from cath site, no bleeding or hematoma evident when undressed. Psych: Appropriate mood and affect. Answers questions appropriately. Cooperative with exam. - Assessment and Plan (1) CHF (congestive heart failure) Current Visit: Yes Status: Acute Assessment and Plan: Patient presented with worsening SOB, orthopnea, and leg swelling. Acute systolic CHF. New onset. Echo showed LVEF 35-40%, mod LV systolic dysfunction. No pHTN. Lasix was given in ER, as well as day before by PCP. Patient states that he is having increased urine output. Lasix increased 07/30 to 40 BID due to low net output. Assess net output tomorrow and adjust dose if needed. Lisinopril started 07/30. Daily weights. Strict I&Os. Continue to monitor. Cardiology consulted and following. LE edema improving, orthopnea present but better. Had 2 separate LHC with total of 3 stents placed. (2) Afib Current Visit: Yes Status: Acute Assessment and Plan: On admission, A-fib on EKG, rate <100. New diagnosis, unknown duration. Rule out ischemic cause. Serial troponins are negative. EKG is negative for acute ischemic changes. Echo showed LVEF 35-40%. No clot. Patient was started on heparin drip. Was started on Toprol. No ASA due to allergy. Continue to monitor. 2 separate LHCs performed with total of 3 stents placed Cardiology consulted and following. (3) Shortness of breath Current Visit: Yes Status: Resolved Assessment and Plan: Likely secondary to Afib and CHF Improved continue to monitor assess for home o2 need at d/c (4) Essential tremor Current Visit: Yes Status: Chronic Assessment and Plan: Pt had been on primadone 50mg QD, but this medication contraindicated with Eliquis. Per neurology, can stop primadone immediately without taper and start gabapentin 100mg TID. Orders in. (5) DVT prophylaxis Current Visit: Yes Status: Acute Assessment and Plan: heparin gtt DVT Prophylaxis: Heparin infusion - Time Spent with Patient Total time spent is greater than 50% in coordination of care (as documented) at patient's floor/unit and/or counseling patient: less than 15 minutes Plan of Care Discussed with: patient Internal Medicine: Result - Labs CBC & Chem 7: 08/02/18 01:41 08/02/18 01:41 Labs: Short CBC 08/02/18 Range/Units 01:41 WBC 7.9 (4.3-11.1) K/mcL Hgb 17.7 H (12.9-16.9) g/dL Hct 53.1 H (37.5-50.1) % Plt Count 175 (140-400) K/mcL Neutrophils # 3.7 (1.6-8.9) K/mcL BMP 08/02/18 01:41 Sodium 136 Potassium 4.2 Chloride 100 Carbon Dioxide 29 BUN 23 Creatinine 1.05 Glucose 111 H Calcium 9.4 - ABG Interpretation ABG results: PT/INR, D-dimer PT 11.2 Seconds (9.4-12.1) 08/01/18 12:29 Consult Discharge Plan - Plan Referrals: Pete Govea MD [Primary Care Provider] - 08/07/18 3:30 pm <Brian Jaquez - Last Filed: 08/02/18 16:51> Hospitalist Progress Note - Exam Vitals: Temp Pulse Resp BP Pulse Ox 97.5 F L 76 16 117/92 96 08/02/18 10:34 08/02/18 12:14 08/02/18 11:45 08/02/18 12:14 08/02/18 10:34 - Assessment and Plan (1) CHF (congestive heart failure) Current Visit: Yes Status: Acute (2) Afib Current Visit: Yes Status: Chronic (3) Shortness of breath Current Visit: Yes Status: Resolved (4) Essential tremor Current Visit: Yes Status: Chronic (5) CAD (coronary artery disease) Current Visit: Yes Status: Acute (6) Morbid obesity with BMI of 40.0-44.9, adult Current Visit: Yes Status: Chronic - Time Spent with Patient Total time spent is greater than 50% in coordination of care (as documented) at patient's floor/unit and/or counseling patient: Internal Medicine: Result - Labs CBC & Chem 7: 08/02/18 01:41 08/02/18 01:41 Labs: Short CBC 08/02/18 Range/Units 01:41 WBC 7.9 (4.3-11.1) K/mcL Hgb 17.7 H (12.9-16.9) g/dL Hct 53.1 H (37.5-50.1) % Plt Count 175 (140-400) K/mcL Neutrophils # 3.7 (1.6-8.9) K/mcL BMP 08/02/18 01:41 Sodium 136 Potassium 4.2 Chloride 100 Carbon Dioxide 29 BUN 23 Creatinine 1.05 Glucose 111 H Calcium 9.4 - ABG Interpretation ABG results: PT/INR, D-dimer PT 11.2 Seconds (9.4-12.1) 08/01/18 12:29 - Attending Attestation I examined this patient and my medical decision-making was reviewed with the Resident Physician on 08/02/18. I agree with the documented findings, disposition and treatment plan as described except to the extent set forth below. Mr Pardo is currently admitted for CHF exacerbation and CAD. He is to have repeat LHC today. He remains moderate to high risk due to potential for worse fazal clinical status. Mr Pardo had repeat cath and stent today. Tolerated OK. No CP now. Still diuresing. No fever or chills. Exam alert Comfortable Mucus membranes dry Heart irreg No wheeze or rhonchi Abd soft Edema present I/P 1. CHF 2. CAD s/p stent today 3. A fib Plan change from Primidone to Neurontin for essential tremor and neuro follow up. Can then start NOAC. Further diagnoses and plan as above. <Lynette uMir - Last Filed: 08/02/18 15:30> (1) CHF (congestive heart failure) Qualifiers: Heart failure type: systolic Heart failure chronicity: acute on chronic Qualified Code(s): I50.23 - Acute on chronic systolic (congestive) heart failure (2) Afib Qualifiers: Atrial fibrillation type: chronic Qualified Code(s): I48.2 - Chronic atrial fibrillation <Brian Jaquez - Last Filed: 08/02/18 16:51> (1) CHF (congestive heart failure) Qualifiers: Heart failure type: systolic Heart failure chronicity: acute on chronic Qualified Code(s): I50.23 - Acute on chronic systolic (congestive) heart failure (2) Afib Qualifiers: Atrial fibrillation type: chronic Qualified Code(s): I48.2 - Chronic atrial fibrillation (5) CAD (coronary artery disease) Qualifiers: Coronary Disease-Associated Artery/Lesion type: [place] artery [place] vs. transplanted heart: [place] heart Associated angina: without angina Qualified Code(s): I25.10 - Atherosclerotic heart disease of [place] coronary artery without angina pectoris
[2018-08-02] MEDS: Furosemide 40 MG/4 ML VIAL IVP SCH ×2 (09:12→15:56)
[2018-08-02] MEDS ORDERED: *HR* FentaNYL (PF) 100 MCG/2 ML VIAL ONE (09:29)
[2018-08-02] MEDS ORDERED: *HR* Midazolam HCl 5 MG/5 ML VIAL IVP ONE (09:30)
--- NOTE | 2018-08-02 09:33 | Pre-Sedation Evaluation ---
Pre-sedation evaluation - Pre-sedation checklist Date of procedure: 07/31/18 Procedure: [facility] Recent Vitals: Last Vital Signs Temp 97.4 F L 08/02/18 07:22 Pulse 94 08/02/18 07:22 Resp 17 08/02/18 07:22 BP 124/96 08/02/18 07:22 Pulse Ox 93 08/02/18 07:22 H&P (including ROS) documented in medical record: Yes Previous reaction to sedatives/anesthetics: No Dietary Status: NPO after Midnight Dentition: dentures removed ASA Classification *see protocol: CLASS II-Mild systemic disease Plan of Care: Pt appropriate candidate for procedure/moderate/conscious sedation, Risks/benefits of procedure/sedation discussed w/ patient/family Cardiac Registry (Cardio Only) - Functional Capacity Functional Capacity: >=4 METS with symptoms - Clincal Frailty Scale Clinical Frailty Scale: Managing Well
--- NOTE | 2018-08-02 10:35 | Invasive Diagnostic Lab Proc ---
Name: Les Pardo Date of Study: 08/02/2018 Date: 1950 Ht: 72.0in Medical Record#: [id number] Age: 68 Wt: 293.21lb Gender: Male BSA: 2.51 Order #: [id number] BMI: 39.71 Physicians Procedure Physician: Alexey Mullen MD, [facility] Referring MD: Referring MD: Staff Name Position Time In Angela Reid RN Straddle Bug Operator 09:31 AM Venus Hackett RN Monitor 09:34 AM Indications Indication Non-Stemi Procedures Performed Procedure PRQ CARD GEOFFREY STENT W/ANGIO 1 VSL Pre-Procedure Checklist Informed consent is complete signed and on chart. H&P is on chart. ID band is on and ID verified with patient. Patient NPO for procedure The procedure was described for the patient and questions were answered. Blood Pressure: 124/96 ECG is on chart. Rhythm: NSR Plan of Care Patient will tolerate the procedure without complications. Adequate level of comfort will be maintained. Hemodynamics will remain stable Patient will recover from procedure without complications. Respiratory function will be maintained. Cardiac rhythm will remain stable. Patient temperature will be maintained. Patient and/or family have verbalized understanding of the procedure. Patient Education Chief Complaint/Reason for Test: Cardiac Cath Developmental Category: Adult (18-64 years) Developmentally Appropriate for Age: Yes Learning Barriers: None Education Needs: Procedure Education Method: Verbal Information Taught: Cardiac Cath Educational Evaluation: Able to repeat information Intravenous Access Time IV Size Location DC'd Fluid/Drip Rate Units RN 20g 1 1/4" Patent On Arrival Lt Antecubital 20g 1 1/4" Patent On Arrival Lt Hand Allergies aspirin Penicillins Sulfa (Sulfonamide Antibiotics) acetaminophen Vital Signs Time BP (mmHg) HR (bpm) O2 Sat. RR (bpm) LOC 09:01 AM 124 / 96 94 93 % 16 5 = Fully awake and oriented or at pre-proc level 09:30 AM / % 5 = Fully awake and oriented or at pre-proc level 09:30 AM / % 4 = Oriented but drowsy 09:45 AM / % 4 = Oriented but drowsy 09:35 AM 152 / 107 102 100 % 20 09:40 AM 143 / 72 93 95 % 13 09:44 AM 148 / 81 109 95 % 11 09:49 AM 135 / 80 105 97 % 13 09:54 AM 137 / 97 96 94 % 15 09:59 AM 104 / 61 85 95 % 15 10:05 AM 125 / 82 93 95 % Procedural Medications Time Medication Dose Units Method Given By 09:30 AM Oxygen 2 L/min nasal cannula Angela Reid RN 09:35 AM Versed 2 mg Intravenous Angela Reid RN 09:35 AM Fentanyl 50 mcg Intravenous Angela Reid RN 09:41 AM Lidocaine 2% 0.5 ml Subcutaneous Alexey Mullen MD, [facility] 09:43 AM Heparin 2000 units Nitroglycerin 200 mcg Verapamil 2.5 mg Intraarterial Alexey Mullen MD, FAC 09:56 AM Nitroglycerin 150 mcg Intracoronary Alexey Mullen MD 10:04 AM Plavix 300 mg Orally Angela Reid RN ASA Classification: CLASS II- Mild systemic disease (i.e. well-controlled diabetes, hypertension, asthma, cigarette smoking) Irvin Score Preprocedure Postprocedure Activity 2- Moves 4 extremities sustained head lift Activity 2- Moves 4 extremities sustained head lift Circulation 2- SBP +/= 20 points of pre-anesthetic level Circulation 2- SBP +/= 20 points of pre-anesthetic level Consciousness 2- Awake and alert oriented x 3 Consciousness 2- Awake and alert oriented x 3 O2 Saturation 2- Able to maintain O2 satruation of 92% on room air O2 Saturation 2- Able to maintain O2 satruation of 92% on room air Respiratory 2- Able to deep breathe and cough well Respiratory 2- Able to deep breathe and cough well Total Score 10 Total Score 10 Contrast Agent: Isovue Diagnostic Contrast: 47 ml Total Contrast: 47 ml Fluoro Dose: 4568 mGy Procedure Log Time Note Enter By 09:29 AM Pt arrived to laborer high density press 2 at 09:29 scoates 09:29 AM Physician arrived 09:29 scoates 09:29 AM ASA Class CLASS II- Mild systemic disease (i.e. well-controlled diabetes, hypertension, asthma, cigarette smoking) scoates 09:29 AM Meet and greet completed scoates 09:29 AM Sign in performed according to hospital policy. Informed consent was obtained. scoates 09:29 AM Procedure start 09:29 scoates 09:30 AM Time: 09:30 Oxygen on at 2 L/min per nasal cannula by Angela Reid RN scoates 09:30 AM Time: 09:30 Patient comfortable and pain free: Yes scoates 09:30 AM Time: :30LOC: 5 = Fully awake and oriented or at pre-proc level scoates 09:30 AM CathStat 09:31 AM Vitals capture started with the following parameters, Patient=Adult, Interval=5 min, Initial Myseeest=769 mmHg, Deflation Rate=5 mmHg, Cuff placed on Right Arm 09:32 AM Angela Reid RN Position: Straddle Bug Operator Time in: : scoates 09:33 AM Vitals capture stopped. 09:34 AM Vitals capture started with the following parameters, Patient=Adult, Interval=5 min, Initial Ogjyloax=388 mmHg, Deflation Rate=5 mmHg, Cuff placed on Right Arm 09:34 AM Venus Hackett RN Position: Monitor Time in: :34 scoates 09:35 AM RE=751 bpm, BNBN=076/107 mmhg, LnH0=783.0 %, Resp=20 B/min, Comment=afib 09:35 AM Time: 09:35 Versed 2 mg Intravenous Given by Angela Reid RN scoates :35 AM Time: 09:35 Fentanyl 50 mcg Intravenous Given by Angela Reid RN scoates 09:37 AM Clinical Presentation: Non-STEMI scoates 09:40 AM HR=93 bpm, EKKY=906/72 mmhg, SpO2=95.0 %, Resp=13 B/min, EtCO2=22 mmHg, Comment=afib 09:40 AM Time out was performed according to hospital policy. Conscious sedation and anesthesia was achieved (see medication log with in this report above) scoates :41 AM Time: :41 0.5 ml Lidocaine 2% to right radial Subcutaneous Given by Alexey Mullen MD, FACC scoates :43 AM Access obtained by percutaneous puncture. 5Fr 11cm Terumo Avis sheath placed in right Radial artery. [id number] scoates :43 AM Time: :43 Patient given 2000 units Heparin, 200 mcg Nitroglycerin, and 2.5 mg Verapamil Intraarterial by Alexey Mullen MD, FACC. This is given to reduce risk of vessel spasm and thrombosis. scoates 09:44 AM BK=381 bpm, SBGK=681/81 mmhg, SpO2=95.0 %, Resp=11 B/min, Comment=afib 09:44 AM PCI Status Urgent scoates 09:45 AM 6Fr RBR 3.5 Convey guide catheter was used to cannulate the PCI vessel successfully. reused? No scoates 09:45 AM Time: 09:30 Patient comfortable and pain free: Yes scoates 09:45 AM Time: 09:30LOC: 4 = Oriented but drowsy scoates 09:46 AM .014 [place] 180cm guide wire across target lesion- successful. reused? No scoates 09:46 AM Inflation device was opened. scoates 09:48 AM Coronary Dominance: Co-dominant scoates 09:48 AM Lesion found in Distal RCA. Pre Stenosis: 85 Pre MARY Flow: scoates 09:48 AM NIBP STAT measurement started. 09:49 AM 2.0 mm x 8 mm Emerge Monorail balloon across target lesion- successful. reused? No scoates 09:49 AM BJ=257 bpm, KNHT=306/80 mmhg, SpO2=97.0 %, Resp=13 B/min, EtCO2=35 mmHg, Comment=afib 09:51 AM Balloon inflated @ 14 brooke for 31 seconds scoates 09:51 AM Recorded Pressure: Ao, HR=96, Condition=Condition 1 (Aorta) Ao 94/69/81 09:52 AM Balloon catheter removed intact. scoates 09:54 AM 2.5mm x 15mm Elinur drug-eluting stent across target lesion- successful Lot #[id number] scoates 09:54 AM HR=96 bpm, XXXZ=501/97 mmhg, SpO2=94.0 %, Resp=15 B/min, Comment=afib 09:55 AM Stent deployed @ 16 brooke for 33 seconds scoates 09:55 AM Recorded Pressure: Ao, HR=91, Condition=Condition 1 (Aorta) Ao 96/67/83 09:56 AM Time: 09:56 Nitroglycerin 150 mcg Intracoronary Given by Alexey Mullen MD scoates 09:56 AM Stent delivery system removed intact. scoates 09:57 AM 3.0 mm x 8mm NC Emerge balloon across target lesion- successful. reused? No scoates 09:59 AM HR=85 bpm, IEFS=081/61 mmhg, SpO2=95.0 %, Resp=15 B/min, Comment=afib 09:59 AM Balloon inflated @ 15 brooke for 22 seconds scoates 10:00 AM Recorded Pressure: Ao, HR=94, Condition=Condition 1 (Aorta) Ao 93/68/80 10:00 AM Time: 09:45 Patient comfortable and pain free: Yes scoates 10:00 AM Time: 09:45LOC: 4 = Oriented but drowsy scoates 10:02 AM Balloon catheter removed intact. scoates 10:04 AM Time: 10:04 Plavix 300 mg Orally Given by Angela Reid RN scoates 10:05 AM HR=93 bpm, JCVF=591/82 mmhg, SpO2=95.0 %, Comment=afib 10:05 AM Guide catheter removed intact. scoates 10:05 AM Guide wire removed intact. scoates 10:05 AM Procedure completed at 10:05 08/02/2018 scoates 10:13 AM What is the NYHA Class? Class 2 scoates 10:13 AM Did you address MARY flow and Dominance? Yes scoates 10:14 AM Sign out completed: Radiation Dose 813 mGy, 4568 cGy/cm2 Fluoro Time: 6.9 Isovue 370 - 200ml contrast 47 ml given by Alexey Mullen MD, [facility]. Complications: None. The patient was discharged out of the sleep lab technologist in stable condition. Cardiac Rehab Consult needed: YesConfirmed administered medications: Yes scoates 10:14 AM Isovue 370 - 200ml,1 Bottle(s) used. scoates 10:14 AM Arterial sheath pulled, Vasc Band closure device used and was Successful S/N. scoates 10:14 AM 10 ml air in Vasc Band. scoates 10:15 AM Estimated Blood Loss: minimal scoates 10:15 AM Post ECG Atrial Fibrillation scoates 10:15 AM Post Blood Pressure 125/82 scoates 10:15 AM 10:15 Post Pulses Rt Radial 1+ scoates 10:15 AM Information taught PCI scoates 10:15 AM Education needs Procedure, Plan of Care, and Responsibilities of Patient in Care scoates 10:16 AM Learning barriers :None scoates 10:16 AM Education Methods Verbal scoates 10:16 AM Education evaluation Able to repeat information scoates 10:16 AM Site status No bleeding/hematoma - Rt Wrist as reported by Louann Kenyon RT (R) at 10:16 scoates 10:16 AM Report given to Celeste AYALA Pt taken to E Room #23. 10:16 scoates 10:16 AM Plavix, Effient or Brilinta given Yes scoates 10:17 AM Delay to floor No scoates 10:17 AM Patient out of room: 10:17 scoates 10:17 AM Family placed in consult room. scoates 10:17 AM Complications: None scoates Complications Complication None None Hemodynamics Pressures Site Systolic/A Wave Diastolic/V Wave Mean AO 94 69 81 AO 96 67 83 AO 93 68 80 Post Procedure Information Blood Pressure: 125/82 mmHg Rhythm: Atrial Fibrillation Post procedural instructions were given Closure Device Time Device Success/Fail 08/02/2018 10:10:00 AM Mechanical Compression Site Checks Time Location Status Staff Sheath In? Note 10:16 AM Rt Wrist No bleeding/hematoma Louann Kenyon RT (R) Pulses Time Site Pre-Procedure Post-Procedure Note Bilateral DP & PT 2+ Bilateral radial 2+ 10:15:00 AM Rt Radial 1+ Updated by Venus Quevedo RN on 08/02/2018 10:27:35 AM electronically signed on 08/02/2018 10:28:37 AM with status of Final
[2018-08-02] MEDS: Gabapentin 100 MG CAPSULE PO SCH ×2 (15:56→20:26)
[2018-08-02] MEDS: Apixaban 5 MG TABLET PO SCH (20:26)
[2018-08-03] MEDS ORDERED: GuaiFENesin Liq 200 MG/10 ML UDC PO PRN (05:03)
[2018-08-03 07:41] VITALS: BP 118/80
[2018-08-03 09:07] LABS: Basophils % 0.5 %; Eosinophils # 0.1 K/mcL (0.0-0.6); Eosinophils % 1.2 %; Hematocrit 53.7 % (37.5-50.1); Hemoglobin 18.2 g/dL (12.9-16.9); Immature Granulocytes % 0.4 % (0-4); Lymphocytes # 2.6 K/mcL (0.6-4.6); Lymphocytes % 34.8 %; Mean Corpuscular HGB Conc 33.9 g/dL (31.6-35.5); Mean Corpuscular Volume 94.5 fL (83.0-100.0); Mean Platelet Volume 9.6 fL (9.4-12.4); Monocytes # 0.7 K/mcL (0.0-1.3); Monocytes % 9.6 %; Neutrophils # 3.9 K/mcL (1.6-8.9); Platelet Count 146 K/mcL (140-400); Red Blood Count 5.68 M/mcL (4.19-5.50); Red Cell Distribution Width 12.5 % (11.5-14.5); Segmented Neutrophils % 53.5 %
[2018-08-03] MEDS: Furosemide 40 MG/4 ML VIAL IVP SCH (09:07)
[2018-08-03] MEDS: Heparin 25,000 UNIT/500 ML D5W 25,000 UNIT/500 ML BAG IVC SCH (09:07)
[2018-08-03] MEDS: Apixaban 5 MG TABLET PO SCH (09:08)
[2018-08-03] MEDS: Metoprolol XL (24 HR) Succ 25 MG TAB.ER.24H PO SCH (09:08)
[2018-08-03] MEDS: Aspirin 81 MG TAB.CHEW PO SCH (09:08)
[2018-08-03] MEDS: Gabapentin 100 MG CAPSULE PO SCH ×2 (09:08→15:10)
[2018-08-03 09:24] LABS: BUN/Creatinine Ratio 19 (6-26); Blood Urea Nitrogen 19 mg/dL (8-23); Calcium 9.7 mg/dL (8.6-10.3); Carbon Dioxide 28 mEq/L (23-29); Chloride 101 mEq/L (98-107); Glucose 171 mg/dL (70-105); Osmolality,Calculated 290 (280-300); Potassium 3.7 mEq/L (3.5-5.1); Sodium 137 mEq/L (136-145); eGFR For Non-African Americans > 60 (> 60)
[2018-08-03] MEDS ORDERED: Metoprolol XL (24 HR) Succ 25 MG TAB.ER.24H PO ONE (09:45)
--- NOTE | 2018-08-03 10:53 | Discharge Summary ---
<Lynette Muir - Last Filed: 08/03/18 12:43> - NOTES TO OUTPATIENT PROVIDER Notes to Outpatient Provider: Pt will need to f/u with Dr. Live for management of essential tremor - was switched from 50mg Primadone to 100mg Gabapentin TID in order to be placed on oral AC Orders not resulted at time of discharge: Pending orders 07/31/18 08:25 CL Cardiac Catheterization [CL] Routine 08/02/18 08:06 CL Cardiac Catheterization [CL] Routine Date of Encounter: 08/03/18 Time of Encounter: 10:07 - Discharge Diagnosis (1) CHF (congestive heart failure) Priority: Primary Status: Acute Assessment and Plan: Patient presented with worsening SOB, orthopnea, and leg swelling. Acute systolic CHF. New onset. Echo showed LVEF 35-40%, mod LV systolic dysfunction. No pHTN. Lasix was given in ER, as well as day before by PCP. Patient states that he is having increased urine output. Lasix increased 07/30 to 40 BID due to low net output. Assess net output tomorrow and adjust dose if needed. Lisinopril started 07/30. Daily weights. Strict I&Os. Continue to monitor. Cardiology consulted and following. LE edema improving, orthopnea present but better. Had 2 LHCs with total of 3 stents placed during this admission. Last CXR showed resolving pulmonary edema Has follow-up with PCP on 08/07/18 at 1500 for long-term management Qualifiers: Heart failure type: systolic Heart failure chronicity: acute on chronic Qualified Code(s): I50.23 - Acute on chronic systolic (congestive) heart failure (2) Afib Priority: Primary Status: Chronic Assessment and Plan: On admission, A-fib on EKG, rate <100. New diagnosis, unknown duration. Serial troponins are negative. EKG is negative for acute ischemic changes. Echo showed LVEF 35-40%. No clot. Patient was started on heparin drip, transitioned to Plavix PO Pt started on Toprol No ASA due to allergy. Cardiology consulted and following. Total of 2 LHC with 3 stents placed during this admission. [id number] Qualifiers: Atrial fibrillation type: chronic Qualified Code(s): I48.2 - Chronic atrial fibrillation (3) Shortness of breath Priority: Secondary Status: Resolved Assessment and Plan: Due to Afib/Pulmonary edema Resolved. (4) Essential tremor Priority: Secondary Status: Chronic Assessment and Plan: Pt was initially on primadone 50mg QD Transitioned to gabapentin 100mg TID no tremor on exam today (5) DVT prophylaxis Priority: Secondary Status: Acute Assessment and Plan: On Plavix 75mg QD Hospital course: Mr. Pardo is a 68 year old male that presented with SOB and LE swelling found to be in AFIB, CXR showed increased opacity consistent with pulmonary edema. Pt had 2 LHC during his admission with a total of 3 stents placed. Pt was diuresed and had significant UOP with improved CXR. Pt was initially on Primadone for essential tremor 50mg QD, but was transitioned to gabapentin 100mg TID as primadone is contraindicated with Eliquis. Pt was started on Metoprolol, losartin, eliquis, lipitor, gabapentin, lisinopril. Has follow-up with PCP scheduled for this coming Tuesday at 1500. Pt states breathing is much improved from when he came in. Discharge discussed with: patient, family Time spent discussing smoking cessation with patient: 3 to 10 minutes - Time Spent with Patient Total time spent providing and/or coordinating discharge services: Less than 30 minutes - Discharge Medications Prescriptions: Apixaban [Eliquis] 5 mg PO BID #60 tablet Atorvastatin [Lipitor] 40 mg PO HS #30 tablet Clopidogrel [Plavix] 75 mg PO DAILY #30 tablet Furosemide [Lasix] 40 mg PO BID #60 tab Gabapentin [Neurontin] 100 mg PO TID #90 capsule Lisinopril [Zestril] 2.5 mg PO DAILY #30 tablet Metoprolol XL (24 HR) Succ [Toprol Xl] 50 mg PO DAILY #30 tab.er.24h Home Medications: Albuterol Sulfate [Ventolin Hfa] 2 puff PO Q4H PRN 07/28/18 [History] Tramadol HCl [Ultram] 50 mg PO TID PRN 07/28/18 [History] predniSONE [PredniSONE] 40 mg PO DAILY 07/28/18 [History] Apixaban [Eliquis] 5 mg PO BID #60 tablet 08/03/18 [Rx] Aspirin 81 mg PO DAILY tab.chew 08/03/18 [Rx] Atorvastatin [Lipitor] 40 mg PO HS #30 tablet 08/03/18 [Rx] Clopidogrel [Plavix] 75 mg PO DAILY #30 tablet 08/03/18 [Rx] Furosemide [Lasix] 40 mg PO BID #60 tab 08/03/18 [Rx] Gabapentin [Neurontin] 100 mg PO TID #90 capsule 08/03/18 [Rx] Lisinopril [Zestril] 2.5 mg PO DAILY #30 tablet 08/03/18 [Rx] Metoprolol XL (24 HR) Succ [Toprol Xl] 50 mg PO DAILY #30 tab.er.24h 08/03/18 [Rx] Allergies/Adverse Reactions: Allergy/AdvReac Type Severity Reaction Status Date / Time acetaminophen [From Tylenol] AdvReac Severe See Verified 07/28/18 22:55 Comments aspirin AdvReac See Verified 07/28/18 22:55 Comments Penicillins AdvReac Dizziness Verified 07/28/18 22:55 Sulfa (Sulfonamide AdvReac Dizziness Verified 07/28/18 20:39 Antibiotics) Date of admission: 07/30/18 14:29 Primary care physician: Pete Govea MD Consults: 07/29/18 08:04 Consult to Cardiology [CONS] Routine Comment: Consulting Provider: [facility] Reason for Consult: New onset atrial fibrillation and CHF. Call Completed: No 08/01/18 07:53 Consult to Cardiac Rehabilitation-Phase1 [CONS] Routine Comment: Reason for Consult: s/p pci Call Completed: Yes - Constitutional Vitals: Temp Pulse Resp BP Pulse Ox 97.3 F L 78 18 118/80 97 08/03/18 07:34 08/03/18 07:34 08/03/18 07:34 08/03/18 07:34 08/03/18 09:11 General appearance: Present: cooperative, A&O X 3, pleasant, no acute distress, answers questions appropriately Exam: General: Morbidly obese. AO x 3. No acute distress or signs of toxicity. Well developed, well nourished. Head: atraumatic, normocephalic. ENT: No conjunctival injection, no scleral icterus. Pupils equal and round. EOMI. mucous membranes moist. Pulm: Lungs CTAB A/P. No wheezes. No acute distress. Cardio: Heart rate irregular. Abd: Soft, non-distended. Normoactive bowel sounds. Non-tender to palpation. No guarding. Non rigid. Extremities: Full ROM, no edema/swelling. Skin: warm, dry, intact. No rashes. R wrist bandaged from cath site, no bleeding or hematoma evident when undressed. Psych: Appropriate mood and affect. Answers questions appropriately. Cooperative with exam. - Patient Status Disposition: Home, Self-Care Condition: Fair Functional capacity at discharge: independent ambulation Overall status at discharge: patient is progressing back to baseline - Discharge Instructions Instructions: Metoprolol (By mouth), Lisinopril (By mouth), Furosemide (By mouth), Gabapentin (By mouth), Atorvastatin (By mouth), Clopidogrel (By mouth), Apixaban (By mouth), Heart Failure (DC), Atrial Fibrillation (DC) Follow Up With: Pete Govea MD [Primary Care Provider] - 08/07/18 3:30 pm Coco Live MD [Partnered Physician] - 09/08/18 10:15 am Additional Instructions: RISK FACTORS: STOP SMOKING: If you smoke, STOP. Smoking or tobacco use significantly increases your risk of heart disease because nicotine causes the arteries to narrow or constrict. It also causes fats to stick to the artery. Your chances of having a heart attack are greatly increased if you continue to smoke. For more information, call the education line for smoking cessation 7-776-ZDCBEUS EAT A LOW FAT/CHOLESTEROL/SODIUM DIET: This diet may help reduce your chances of having a heart attack. LIFTING: With affected extremity: Avoid bending, pushing off and lifting more than 2 pounds for 24 hours The following 48 hours, avoid lifting anything more than 5 pounds Avoid strenuous activity or repetitive motions ACTIVITY: You may walk or climb stairs as tolerated You can resume sexual activity as tolerated In general, you are encouraged to engage in a minimum of 30 minutes or more of moderate intensity physical activity, such as brisk walking, daily or at least 3-4 times weekly BATHING Do not submerge the site into water (bath tub, hot tub, swimming pool, dishes) for 1 week. This can be a source for infection into the blood stream. You may shower after 24 hours SITE CARE: After 24 hours, you may remove the dressing and leave the site open to air. Keep the site clean and dry. Clean gently and pat dry. You can expect bruising and tenderness that gradually resolve within a week or two. Return to work as instructed per your physician Resume driving as instructed per physician Keep all scheduled follow up appointments Resume medications as instructed IMPORTANT: If prescribed a Platelet Aggregation Inhibitor such as, Plavix, Brilinta or Effient: Duration of therapy is minimum one year These medications are often used in combination with Aspirin in prevention of future heart attacks Never discontinue unless consult with your Grooving Lathe Tender STROKE (CVA) Risk factors for a stroke are: Age, cigarette smoking, diabetes, excessive a lcohol consumption, family history, high blood pressure, overweight, physical inactivity, prior stroke, heart attack, diagnosis of carotid artery stenosis or other artery disease. Warning signs: Sudden numbness or weakness of the face, arm or leg; especially on one side of the body, sudden confusion, trouble speaking or understanding, sudden trouble seeing in one or both eyes, sudden trouble walking, dizziness, loss of balance or coordination, sudden severe headache with no cause. Call 911 or go to the Emergency Room. CONGESTIVE HEART FAILURE: If you have been diagnosed with Congestive Heart Failure (CHF) and your symptoms return, make an appointment with your physician Weigh yourself daily. Notify your physician if you have a weight gain of two or more pounds in one day or five or more pounds in one week. If you experience any difficulty breathing, please call 911 BLEEDING: Although the risk of bleeding is minimal, it can happen. If you have any bleeding from the site, apply firm pressure above the puncture site for 10-15 minutes. If the bleeding does not stop, continue manual pressure and call 911 Contact [facility] ( ) if: You develop a fever greater than 101 degrees Fahrenheit Your site becomes reddened or has any drainage You have an increase in pain or burning at the site or if a large knot forms at the site. If you experience chest pain, shortness of breath, dizziness, or extreme tiredness, stop the activity and rest. Please notify [facility] office if you experience any of these symptoms and they are not relieved by rest please call 911! - Diet and Activity Activity: as per the cardiac rehab Diet: advance to your usual diet <Brian Jaquez - Last Filed: 08/03/18 14:27> Orders not resulted at time of discharge: Pending orders 07/31/18 08:25 CL Cardiac Catheterization [CL] Routine 08/02/18 08:06 CL Cardiac Catheterization [CL] Routine - Discharge Diagnosis (1) CHF (congestive heart failure) Status: Resolved Qualifiers: Heart failure type: systolic Heart failure chronicity: acute on chronic Qualified Code(s): I50.23 - Acute on chronic systolic (congestive) heart failure (2) Afib Priority: Secondary Status: Chronic Qualifiers: Atrial fibrillation type: chronic Qualified Code(s): I48.2 - Chronic atrial fibrillation (3) Shortness of breath Status: Resolved (4) Essential tremor Status: Chronic (5) CAD (coronary artery disease) Priority: Secondary Status: Chronic Qualifiers: Coronary Disease-Associated Artery/Lesion type: [place] artery [place] vs. transplanted heart: [place] heart Associated angina: without angina Qualified Code(s): I25.10 - Atherosclerotic heart disease of [place] coronary artery without angina pectoris (6) Morbid obesity with BMI of 40.0-44.9, adult Priority: Secondary Status: Chronic (7) NSVT (nonsustained ventricular tachycardia) Priority: Secondary Status: Acute Hospital course: Mr. Pardo is a 68 year old male - Time Spent with Patient Total time spent providing and/or coordinating discharge services: 37min Date of admission: 07/30/18 14:29 Primary care physician: Pete Govea MD Consults: 07/29/18 08:04 Consult to Cardiology [CONS] Routine Comment: Consulting Provider: [facility] Reason for Consult: New onset atrial fibrillation and CHF. Call Completed: No 08/01/18 07:53 Consult to Cardiac Rehabilitation-Phase1 [CONS] Routine Comment: Reason for Consult: s/p pci Call Completed: Yes - Constitutional Vitals: Temp Pulse Resp BP Pulse Ox 97.3 F L 78 18 118/80 95 08/03/18 07:34 08/03/18 07:34 08/03/18 07:34 08/03/18 07:34 08/03/18 13:15 - Attending Attestation I examined this patient and my medical decision-making was reviewed with the Resident Physician on 08/03/18. I agree with the documented findings, disposition and treatment plan as described except to the extent set forth below. Mr Pardo has been admitted for acute exac CHF and cardiac ischemia. He has had 2 LHC and stents and is doing better overall. He is currently afebrile and ready for discharge home. Exam alert Comfortable eating lunch Mucus membranes dry Heart reg No wheeze abd soft Plan D/C home today.
--- NOTE | 2018-08-03 10:55 | Cardiology Progress Note ---
Date of Encounter: 08/03/18 Time of Encounter: 10:23 Assessment and Plan (1) NSVT (nonsustained ventricular tachycardia) Current Visit: Yes Status: Acute 4 beat run NSVT on telemetry last night. K 3.7--give additional K supplement. Increased PO BB Toprol XL from 25mg to 50mg daily. TTE EF 35-40%. S/P PCI to LAD, OM, RCA. Discussed with Dr. Jimenes. Increased BB dose given this AM. If no recurrent NSVT, okay to d/c home later today. Cardiology signing off. Reconsult PRN or if recurrent NSVT. Will coordinate close outpt follow-up in 1 week. (2) CHF (congestive heart failure) Current Visit: Yes Status: Acute New diagnosis of systolic dysfunction this admission. TTE LVEF grossly 35-40%. Moderate global left ventricular systolic dysfunction. Normal right ventricular structure and function. Mild mitral regurgitation. Mild pulmonic regurgitation. On IV diuresis 40mg IV BID. Recommend strict I/O, Na and fluid restriction, daily weights. CHF teaching discussed. Continue BB and ACEi. Will transition to PO Lasix 40mg BID. Close outpt cardiology follow-up in 1-2 weeks. Will coordinate. Qualifiers: Heart failure type: systolic Heart failure chronicity: acute on chronic Qualified Code(s): I50.23 - Acute on chronic systolic (congestive) heart failure (3) CAD (coronary artery disease) Current Visit: Yes Status: Acute [facility] 07/31 with PCI to LAD and OM. Final report pending. [facility] 08/02 underwent staged PCI of RCA. Final report also pending. DAPT (ASA and Plavix) uninterrupted. Pt verbalizes understanding. Continue BB, Statin, ACEi. Since pt was started on Eliquis for A-Fib, plan for triple therapy--ASA, Plavix, Eliquis x 1 month, then plan to stop ASA. TTE EF 35-40%, global. Will need repeat TTE 3 months post revascularization. Right radial access site healing well. No bleeding, hematoma or ecchymosis noted. Restrictions discussed. Qualifiers: Coronary Disease-Associated Artery/Lesion type: [place] artery [place] vs. transplanted heart: [place] heart Associated angina: without angina Qualified Code(s): I25.10 - Atherosclerotic heart disease of [place] coronary artery without angina pectoris (4) Afib Current Visit: Yes Status: Chronic Found to be A-Fib on admission. Uncertain duration but suspect this is not acute onset but new diagnosis. Currently rate controlled on BB. [id number] (Age, HTN, CHF, CAD).High CVA risk. Recommend AC. Interaction with Primidone and NOACs. Primidone switched to Gabapentin. Eliquis 5mg BID weathers check $8/month. Pt agreeable. Eliquis started last night. H&H stable. As above, on triple therapy x 1 month, then plan to stop ASA. Qualifiers: Atrial fibrillation type: chronic Qualified Code(s): I48.2 - Chronic atrial fibrillation (5) Cardiomyopathy Current Visit: Yes Status: Acute ICMP EF 35-40%, s/p PCI to LAD, OM, RCA. As above, has been diuresed. Continue BB, ACEi, transition to PO Lasix. TTE in 3 months as outpt to re-evaluate EF. Qualifiers: Cardiomyopathy type: unspecified Qualified Code(s): I42.9 - Cardiomyopathy, unspecified Discussion w patient/family: The assessment and plan as outlined above was discussed with the patient and/or family members who expressed understanding and agreement. All questions were answered. Thank you for involving us in the care of your patient. Please call with any questions. I will discuss all the above with Dr. Jimenes and make changes as necessary. Subjective Principal diagnosis: CHF, A-Fib, CAD, CMP Interval history: Underwent LHC yesterday for staged PCI of RCA. Pt denies acute complaints this AM. No chest pain. No dyspnea on supplemental O2. Objective Vital Signs, Last 4 Hours Temp Pulse Resp BP Pulse Ox 08/03/18 09:11 97 08/03/18 07:34 97.3 F L 78 18 118/80 97 Vital Signs Temp Pulse Resp BP Pulse Ox 08/03/18 09:11 97 08/03/18 07:34 97.3 F L 78 18 118/80 97 08/03/18 04:20 97.4 F L 75 15 113/94 93 08/03/18 00:43 97.4 F L 78 16 126/85 93 08/02/18 20:42 97.6 F 82 16 114/81 96 08/02/18 20:36 116/72 96 08/02/18 16:38 97.7 F 94 18 142/75 98 08/02/18 12:14 76 117/92 08/02/18 11:45 85 16 114/86 08/02/18 11:15 78 16 108/79 08/02/18 11:00 91 16 115/91 08/02/18 10:45 82 16 121/90 08/02/18 10:34 97.5 F L 92 15 115/84 96 08/02/18 10:33 94 115/84 Intake and Output 08/02/18 08/03/18 08/03/18 23:59 07:59 15:59 Intake Total 545 / 545 0 / 0 240 / 240 Output Total 650 / 650 0 / 0 Balance -105 / -105 0 / 0 240 / 240 Intake: IV Fluids 185 / 185 Heparin 25,000 UNIT/500 ML D5W 185 / 185 25,000 unit In 500 ml @ 14 UNIT /KG/HR 38.472 mls/hr IVC .Q13H JOYCE Rx#:[id number] Oral 360 / 360 0 / 0 240 / 240 Output: Urine 650 / 650 0 / 0 Other: Meal Dinner Breakfast Percent of Meal Consumed 100% 100% Weight 132.7 kg Patient Weight 08/03/18 23:59 Weight 132.7 kg General: Conversant, No Apparent Distress HEENT: Atraumatic, Normocephaly, Mucus Membranes Moist Neck: No JVD, Normal carotid pulses Cardiac: Other (irregularly irregular rhythm) Lungs: Normal Breath Sounds, No Wheeze, Rales, Rhonchi Neuro: Alert and responsive, No focal deficits noted Abdomen: Soft, Non-Tender Skin: No rashes noted on visualized skin Musculoskeletal: No Chest Wall Tenderness Extremities: No Clubbing, No Cyanosis, No Edema, Normal Pulses Results 08/03/18 08:47 08/03/18 08:47 Lab Results 08/03/18 08/03/18 08:47 08:47 WBC 7.4 Hgb 18.2 H Hct 53.7 H Plt Count 146 Sodium 137 Potassium 3.7 Chloride 101 Carbon Dioxide 28 BUN 19 Creatinine 1.00 Glucose 171 H Calcium 9.7 Short CBC 08/03/18 Range/Units 08:47 WBC 7.4 (4.3-11.1) K/mcL Hgb 18.2 H (12.9-16.9) g/dL Hct 53.7 H (37.5-50.1) % Plt Count 146 (140-400) K/mcL Neutrophils # 3.9 (1.6-8.9) K/mcL BMP 08/03/18 Range/Units 08:47 Sodium 137 (136-145) mEq/L Potassium 3.7 (3.5-5.1) mEq/L Chloride 101 (98-107) mEq/L Carbon Dioxide 28 (23-29) mEq/L BUN 19 (8-23) mg/dL Creatinine 1.00 (0.70-1.30) mg/dL Glucose 171 H (70-105) mg/dL Calcium 9.7 (8.6-10.3) mg/dL Active Medications Apixaban (Eliquis) 5 mg PO BID [facility] Stop: 02/01/19 21:01 Last Admin: 08/03/18 09:08 Dose: 5 mg Aspirin (Aspirin) 81 mg PO DAILY [facility] Stop: 01/31/19 09:01 Last Admin: 08/03/18 09:08 Dose: 81 mg Atorvastatin Calcium (Lipitor) 40 mg PO HS [facility] Stop: 01/28/19 21:01 Last Admin: 08/02/18 20:26 Dose: 40 mg Clopidogrel Bisulfate (Plavix) 75 mg PO DAILY [facility] Stop: 01/31/19 09:01 Last Admin: 08/03/18 09:08 Dose: 75 mg Furosemide (Lasix) 40 mg IVP BIDDIURETIC [facility] Stop: 01/29/19 09:16 Last Admin: 08/03/18 09:07 Dose: 40 mg Gabapentin (Neurontin) 100 mg PO TID [facility] Stop: 02/01/19 15:01 Last Admin: 08/03/18 09:08 Dose: 100 mg Guaifenesin (Robitussin Liq) 200 mg PO Q6HR PRN PRN Reason: Cough Stop: 02/02/19 05:04 Last Admin: 08/03/18 06:21 Dose: 200 mg Lisinopril (Zestril) 2.5 mg PO DAILY [facility]; Protocol Stop: 01/29/19 10:16 Last Admin: 08/03/18 09:07 Dose: 2.5 mg Metoprolol Succinate (Toprol Xl) 50 mg PO DAILY [facility] Stop: 02/03/19 09:01 Naloxone HCl (Narcan) 0.4 mg IVP Q2MIN PRN PRN Reason: SEE COMMENTS Stop: 01/28/19 01:23 - Imaging and Cardiology Echo: report reviewed Cardiac cath: report reviewed - EKG Interpretation EKG results cardiology: other (12 hr tele AVG HR 88, A-Fib, 4 beat NSVT) Consult Discharge Plan - Plan Instructions: Heart Failure (DC), Atrial Fibrillation (DC) Additional Instructions: RISK FACTORS: STOP SMOKING: If you smoke, STOP. Smoking or tobacco use significantly increases your risk of heart disease because nicotine causes the arteries to narrow or constrict. It also causes fats to stick to the artery. Your chances of having a heart attack are greatly increased if you continue to smoke. For more information, call the education line for smoking cessation [id number]-[id number] EAT A LOW FAT/CHOLESTEROL/SODIUM DIET: This diet may help reduce your chances of having a heart attack. LIFTING: With affected extremity: Avoid bending, pushing off and lifting more than 2 pounds for 24 hours The following 48 hours, avoid lifting anything more than 5 pounds Avoid strenuous activity or repetitive motions ACTIVITY: You may walk or climb stairs as tolerated You can resume sexual activity as tolerated In general, you are encouraged to engage in a minimum of 30 minutes or more of moderate intensity physical activity, such as brisk walking, daily or at least 3-4 times weekly BATHING Do not submerge the site into water (bath tub, hot tub, swimming pool, dishes) for 1 week. This can be a source for infection into the blood stream. You may shower after 24 hours SITE CARE: After 24 hours, you may remove the dressing and leave the site open to air. Keep the site clean and dry. Clean gently and pat dry. You can expect bruising and tenderness that gradually resolve within a week or two. Return to work as instructed per your physician Resume driving as instructed per physician Keep all scheduled follow up appointments Resume medications as instructed IMPORTANT: If prescribed a Platelet Aggregation Inhibitor such as, Plavix, Brilinta or Effient: Duration of therapy is minimum one year These medications are often used in combination with Aspirin in prevention of future heart attacks Never discontinue unless consult with your [employer] STROKE (CVA) Risk factors for a stroke are: Age, cigarette smoking, diabetes, excessive alcohol consumption, family history, high blood pressure, overweight, physical inactivity, prior stroke, heart attack, diagnosis of carotid artery stenosis or other artery disease. Warning signs: Sudden numbness or weakness of the face, arm or leg; especially on one side of the body, sudden confusion, trouble speaking or understanding, sudden trouble seeing in one or both eyes, sudden trouble walking, dizziness, loss of balance or coordination, sudden severe headache with no cause. Call 911 or go to the Emergency Room. CONGESTIVE HEART FAILURE: If you have been diagnosed with Congestive Heart Failure (CHF) and your symptoms return, make an appointment with your physician Weigh yourself daily. Notify your physician if you have a weight gain of two or more pounds in one day or five or more pounds in one week. If you experience any difficulty breathing, please call 911 BLEEDING: Although the risk of bleeding is minimal, it can happen. If you have any bleeding from the site, apply firm pressure above the puncture site for 10-15 minutes. If the bleeding does not stop, continue manual pressure and call 911 Contact [facility] ( ) if: You develop a fever greater than 101 degrees Fahrenheit Your site becomes reddened or has any drainage You have an increase in pain or burning at the site or if a large knot forms at the site. If you experience chest pain, shortness of breath, dizziness, or extreme tiredness, stop the activity and rest. Please notify [facility] office if you experience any of these symptoms and they are not relieved by rest please call 911! Referrals: Pete Govea MD [Primary Care Provider] - 08/07/18 3:30 pm Prescriptions: Apixaban [Eliquis] 5 mg PO BID #60 tablet Atorvastatin [Lipitor] 40 mg PO HS #30 tablet Clopidogrel [Plavix] 75 mg PO DAILY #30 tablet Furosemide [Lasix] 40 mg PO DAILY #30 tablet Gabapentin [Neurontin] 100 mg PO TID #90 capsule Lisinopril [Zestril] 2.5 mg PO DAILY #30 tablet Metoprolol XL (24 HR) Succ [Toprol Xl] 50 mg PO DAILY #30 tab.er.24h
[2018-08-03] MEDS ORDERED: Furosemide 40 MG TABLET PO SCH (17:00)
[2018-08-04] MEDS ORDERED: Metoprolol XL (24 HR) Succ 50 MG TAB.ER.24H PO SCH (09:00)
--- NOTE | 2018-08-05 19:13 | Electrocardiograph Report ---
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
== END 2018-08-03 18:55 | disposition home or self-care (01) | DRG 247 ==
LOC: 2NENU 17:54 → EMEROOARM 17:54 → SUATTDRO 20:25 → 2NENU 22:17 → SUATTDRO 07-30 14:29
PROVIDERS: ADMIT Family Medicine; ATTEND Internal Medicine